=== PATIENT | female | born 1955 | race Caucasian/White ===

== ENCOUNTER 2016-10-03 12:22 | Inpatient (IN) | payer MEDICARE, OTHER ==
[~2016-10-03] VITALS: Ht 175.3 cm; Wt 82.0 kg
[~2016-10-03 12:22] MED LIST: ARIP15TA3 PO; CALCIUM CARBONATE PO; DIPH25 PO; DOCU250C91 PO; FERR-89 PO; FLUO-191 PO; INSNOV SQ; METF500T4 PO; ONDA4 PO; OXYC10IR PO; OXYC40TA57 PO; PANT40TA25 PO; PREG25 PO; SYMB8060 IH; ZOLP5 PO
[2016-10-03 12:46] LABS: GLUCOSE,POINT OF CARE 93 MG/DL (70-110)
[2016-10-03] MEDS ORDERED: VANCOMYCIN HCL 1 GM/D5% WATER 200 ML IV ONE (15:00)
[2016-10-03 15:51] LABS: APPEARANCE,URINE CLEAR (CLEAR); GLUCOSE, URINE (UA) NEGATIVE (NEGATIVE); KETONES,URINE TRACE mg/dL (NEGATIVE); LEUKOCYTE ESTERASE ,URINE NEGATIVE (NEGATIVE); OCCULT BLOOD,URINE NEGATIVE (NEGATIVE); PH,URINE 5.5 (5.0-8.0); PROTEIN,URINE TRACE (NEGATIVE)
[2016-10-03 15:52] LABS: ADD UA MICROSCOPIC NO
[2016-10-03 15:57] LABS: ANION GAP 8 mmol/L (8-16); CALCIUM, TOTAL 9.1 mg/dL (8.8-10.5); CARBON DIOXIDE 28 mmol/L (22-29); CHLORIDE 99 mmol/L (98-107); CREATININE 0.85 mg/dL (0.60-1.30); GLOMERULAR FILTR. RATE CALC > 60 mL/min (>60); POTASSIUM 3.9 mmol/L (3.5-5.1); SODIUM SERUM 135 mmol/L (136-145); UREA NITROGEN, BLOOD 15 mg/dL (7-18)
[2016-10-03 16:02] LABS: ALANINE AMINOTRANSFERASE 100 U/L (12-78); ALBUMIN 2.8 g/dL (3.4-5.0); ASPARTATE AMINOTRANSFERASE 129 U/L (15-37); BILIRUBIN,TOTAL 0.5 mg/dL (0.1-1.0); TOTAL PROTEIN, SERUM 7.8 g/dL (6.4-8.2)
[2016-10-03 16:04] LABS: BASOPHILS % (AUTO) 0.1 % (0.0-2.0); EOSINOPHILS % (AUTO) 0.4 % (1.0-6.0); HEMATOCRIT 40.7 % (36-46); HEMOGLOBIN 13.7 g/dL (12.0-16.0); LYMPHOCYTES # (AUTO) 1.6 K/uL (1.0-4.8); LYMPHOCYTES % (AUTO) 11.5 % (22.0-44.0); MEAN CORPUSCULAR HEMOGLOBIN 28.9 pg (26.0-34.0); MEAN CORPUSCULAR HGB CONC 33.7 G/dL (31.0-37.0); MEAN CORPUSCULAR VOLUME 86 fL (80-100); MONOCYTES # (AUTO) 0.6 K/uL (0.1-1.0); MONOCYTES % (AUTO) 4.5 % (2.0-9.0); NEUTROPHILS # (AUTO) 11.8 K/uL (1.8-7.7); NEUTROPHILS % (AUTO) 83.5 % (40.0-70.0); PLATELET COUNT (AUTO) 356 K/uL (150-450); RED BLOOD CELL COUNT(AUTO) 4.75 MIL/uL (4.00-5.20); RED CELL DISTRIBUTION WIDTH 15.5 % (11.5-14.5); WHITE BLOOD COUNT (AUTO) 14.1 K/uL (4.5-11.0)
[2016-10-03] MEDS ORDERED: HYDROmorphone 2 MG/ML SYRINGE IVP ONE (16:30)
[2016-10-03 17:09] LABS: ERYTHROCYTE SEDIMENTATION RATE 50 MM/HR (0-20)
[2016-10-03] MEDS ORDERED: OxyCODONE HCL/ACETAMINOPHEN 5-325 MG TABLET PO PRN (17:15)
[2016-10-03] MEDS ORDERED: ONDANSETRON HCL 4 MG/2 ML VIAL IVP PRN ×2 (17:15→20:15)
[2016-10-03] MEDS ORDERED: ACETAMINOPHEN 325 MG TABLET PO PRN ×2 (17:15→20:15)
[2016-10-03] MEDS ORDERED: 0.9% SODIUM CHLORIDE 10 ML SYRINGE IVP PRN (17:15)
[2016-10-03 17:54] VITALS: BP 119/70
[2016-10-03 19:28] VITALS: BP 115/72
[2016-10-03 19:35] LABS: GLUCOSE,POINT OF CARE 100 MG/DL (70-110)
[2016-10-03] MEDS ORDERED: MAGNESIUM HYDROXIDE SUSPENSION 30 ML UDCUP PO PRN (20:15)
[2016-10-03] MEDS ORDERED: IPRATROPIUM BROMIDE 0.5 MG/2.5 ML NEB SOLUTION NEB PRN (20:15)
[2016-10-03] MEDS ORDERED: ZOLPIDEM TARTRATE 5 MG TABLET PO PRN (20:15)
[2016-10-03] MEDS ORDERED: BISACODYL 10 MG RECTAL RECTAL SUPPOSITORY PR PRN (20:15)
[2016-10-03] MEDS ORDERED: ALBUTEROL SULFATE 2.5 MG/0.5 ML NEB SOLUTION NEB PRN (20:15)
[2016-10-03] MEDS ORDERED: SODIUM CHLORIDE 0.9% 500 ML IV ONE (21:33)
[2016-10-03] MEDS: DOCUSATE SODIUM 100 MG CAPSULE PO SCH (21:44)
[2016-10-03] MEDS: CEFTAROLINE 600 MG/D5W 250 ML IV SCH (21:44)
[2016-10-03] MEDS: CALCIUM CARBONATE 648 MG TABLET PO SCH (21:44)
[2016-10-03] MEDS: BUDESONIDE/FORMOTEROL FUMARATE 80-4.5 MCG/PUFF 6.9 GM INHALER IH SCH (21:44)
[2016-10-03] MEDS: PREGABALIN 25 MG CAPSULE PO SCH (21:44)
[2016-10-03] MEDS: NICOTINE 21 MG/24 HOUR PATCH TD SCH (21:45)
[2016-10-03] MEDS: HYDROCODONE/ACETAMINOPHEN 5-325 MG TABLET PO PRN (22:11)
[2016-10-03 23:22] VITALS: BP 100/48
[2016-10-04] MEDS: HEPARIN SODIUM,PORCINE 5,000 UNITS/ML VIAL SQ SCH ×4 (00:07→23:08)
[2016-10-04] MEDS: ZOLPIDEM TARTRATE 5 MG TABLET PO PRN ×2 (00:09→22:01)
[2016-10-04 04:45] VITALS: BP 100/66
[2016-10-04] MEDS: HYDROCODONE/ACETAMINOPHEN 5-325 MG TABLET PO PRN ×2 (04:55→22:01)
[2016-10-04 06:49] LABS: BASOPHILS # (AUTO) 0.02 K/uL (0.00-0.20); BASOPHILS % (AUTO) 0.2 % (0.0-2.0); EOSINOPHILS # (AUTO) 0.07 K/uL (0.00-0.70); EOSINOPHILS % (AUTO) 0.64 % (1.0-6.0); HEMATOCRIT 38.9 % (36-46); HEMOGLOBIN 13.1 g/dL (12.0-16.0); LYMPHOCYTES # (AUTO) 0.9 K/uL (1.0-4.8); LYMPHOCYTES % (AUTO) 8.9 % (22.0-44.0); MEAN CORPUSCULAR HGB CONC 33.8 G/dL (31.0-37.0); MEAN CORPUSCULAR VOLUME 86 fL (80-100); MONOCYTES # (AUTO) 0.6 K/uL (0.1-1.0); MONOCYTES % (AUTO) 5.5 % (2.0-9.0); NEUTROPHILS # (AUTO) 8.9 K/uL (1.8-7.7); NEUTROPHILS % (AUTO) 84.7 % (40.0-70.0); PLATELET COUNT (AUTO) 328 K/uL (150-450); RED BLOOD CELL COUNT(AUTO) 4.52 MIL/uL (4.00-5.20); RED CELL DISTRIBUTION WIDTH 14.6 % (11.5-14.5); WHITE BLOOD COUNT (AUTO) 10.6 K/uL (4.5-11.0)
[2016-10-04 07:03] LABS: ALANINE AMINOTRANSFERASE 95 U/L (12-78); ALBUMIN 2.5 g/dL (3.4-5.0); ANION GAP 2 mmol/L (8-16); ASPARTATE AMINOTRANSFERASE 135 U/L (15-37); BILIRUBIN,TOTAL 0.4 mg/dL (0.1-1.0); CALCIUM, TOTAL 8.7 mg/dL (8.8-10.5); CARBON DIOXIDE 32 mmol/L (22-29); CHLORIDE 101 mmol/L (98-107); CREATININE 0.91 mg/dL (0.60-1.30); GLOMERULAR FILTR. RATE CALC > 60 mL/min (>60); SODIUM SERUM 135 mmol/L (136-145); TOTAL PROTEIN, SERUM 7.3 g/dL (6.4-8.2); UREA NITROGEN, BLOOD 12 mg/dL (7-18)
[2016-10-04 07:15] VITALS: BP 114/80
[2016-10-04] MEDS ORDERED: DEXTROSE 50%-WATER 25 GM/50 ML SYRINGE IVP PRN (09:15)
[2016-10-04] MEDS: CEFTAROLINE 600 MG/D5W 250 ML IV SCH ×2 (09:28→20:21)
[2016-10-04] MEDS: MORPHINE SULFATE 4 MG/ML SYRINGE IVP PRN ×2 (09:28→15:44)
[2016-10-04] MEDS: PANTOPRAZOLE SODIUM 40 MG/VIAL IVP SCH (09:29)
[2016-10-04] MEDS: MetFORMIN HCL 500 MG TABLET PO SCH ×2 (09:29→18:16)
[2016-10-04] MEDS: FERROUS SULFATE 325 MG EC TABLET PO SCH ×2 (09:29→18:16)
[2016-10-04] MEDS: FLUoxetine HCL 20 MG CAPSULE PO SCH (09:30)
[2016-10-04] MEDS: BUDESONIDE/FORMOTEROL FUMARATE 80-4.5 MCG/PUFF 6.9 GM INHALER IH SCH ×2 (09:30→20:21)
[2016-10-04] MEDS: DOCUSATE SODIUM 100 MG CAPSULE PO SCH ×2 (09:30→20:20)
[2016-10-04] MEDS: CALCIUM CARBONATE 648 MG TABLET PO SCH ×2 (09:30→20:21)
[2016-10-04] MEDS: PREGABALIN 25 MG CAPSULE PO SCH ×2 (09:30→20:20)
[2016-10-04] MEDS: NICOTINE 21 MG/24 HOUR PATCH TD SCH (09:31)
[2016-10-04] MEDS: ARIPiprazole 15 MG TABLET PO SCH (09:31)
[2016-10-04 11:13] VITALS: BP 97/57
[2016-10-04 12:31] LABS: GLUCOSE,POINT OF CARE 115 MG/DL (70-110)
[2016-10-04] MEDS: INSULIN ASPART 100 UNITS/ML SQ PRN ×3 (13:46→17:10)
[2016-10-04 15:22] VITALS: BP_SYST 102; BP_SYST 155; BP_DIAS 57; BP_DIAS 64
[2016-10-04] MEDS: DiphenhydrAMINE HCL 25 MG CAPSULE PO PRN (18:16)
[2016-10-04 19:31] LABS: GLUCOSE,POINT OF CARE 107 MG/DL (70-110)
[2016-10-04 19:40] VITALS: BP 114/73
[2016-10-04 20:41] LABS: GLUCOSE,POINT OF CARE 106 MG/DL (70-110)
[2016-10-04 23:34] VITALS: BP 100/67
[2016-10-05] MEDS: MORPHINE SULFATE 4 MG/ML SYRINGE IVP PRN ×2 (02:36→23:00)
[2016-10-05 04:36] VITALS: BP 117/72
[2016-10-05 05:35] LABS: GLUCOSE,POINT OF CARE 92 MG/DL (70-110)
[2016-10-05 06:24] LABS: BASOPHILS # (AUTO) 0.03 K/uL (0.00-0.20); BASOPHILS % (AUTO) 0.3 % (0.0-2.0); EOSINOPHILS # (AUTO) 0.07 K/uL (0.00-0.70); EOSINOPHILS % (AUTO) 0.58 % (1.0-6.0); HEMATOCRIT 40.6 % (36-46); HEMOGLOBIN 13.7 g/dL (12.0-16.0); LYMPHOCYTES # (AUTO) 1.7 K/uL (1.0-4.8); LYMPHOCYTES % (AUTO) 14.4 % (22.0-44.0); MEAN CORPUSCULAR HEMOGLOBIN 29.5 pg (26.0-34.0); MEAN CORPUSCULAR HGB CONC 33.8 G/dL (31.0-37.0); MEAN CORPUSCULAR VOLUME 87 fL (80-100); MONOCYTES # (AUTO) 0.6 K/uL (0.1-1.0); MONOCYTES % (AUTO) 5.4 % (2.0-9.0); NEUTROPHILS # (AUTO) 9.1 K/uL (1.8-7.7); NEUTROPHILS % (AUTO) 79.3 % (40.0-70.0); PLATELET COUNT (AUTO) 313 K/uL (150-450); RED BLOOD CELL COUNT(AUTO) 4.65 MIL/uL (4.00-5.20); RED CELL DISTRIBUTION WIDTH 15.9 % (11.5-14.5); WHITE BLOOD COUNT (AUTO) 11.5 K/uL (4.5-11.0)
[2016-10-05 07:00] LABS: ALANINE AMINOTRANSFERASE 81 U/L (12-78); ALBUMIN 2.6 g/dL (3.4-5.0); ANION GAP 7 mmol/L (8-16); ASPARTATE AMINOTRANSFERASE 98 U/L (15-37); BILIRUBIN,TOTAL 0.4 mg/dL (0.1-1.0); CALCIUM, TOTAL 9.1 mg/dL (8.8-10.5); CARBON DIOXIDE 29 mmol/L (22-29); CHLORIDE 99 mmol/L (98-107); CREATININE 0.92 mg/dL (0.60-1.30); GLOMERULAR FILTR. RATE CALC > 60 mL/min (>60); POTASSIUM 4.2 mmol/L (3.5-5.1); SODIUM SERUM 135 mmol/L (136-145); TOTAL PROTEIN, SERUM 7.7 g/dL (6.4-8.2); UREA NITROGEN, BLOOD 12 mg/dL (7-18)
[2016-10-05 07:10] VITALS: BP 138/70
[2016-10-05] MEDS: PANTOPRAZOLE SODIUM 40 MG/VIAL IVP SCH (07:52)
[2016-10-05] MEDS: HEPARIN SODIUM,PORCINE 5,000 UNITS/ML VIAL SQ SCH ×3 (07:52→23:00)
[2016-10-05] MEDS: MetFORMIN HCL 500 MG TABLET PO SCH ×2 (07:52→17:34)
[2016-10-05] MEDS: FERROUS SULFATE 325 MG EC TABLET PO SCH ×2 (07:52→17:34)
[2016-10-05] MEDS: DOCUSATE SODIUM 100 MG CAPSULE PO SCH ×2 (07:53→20:00)
[2016-10-05] MEDS: NICOTINE 21 MG/24 HOUR PATCH TD SCH (07:53)
[2016-10-05] MEDS: CALCIUM CARBONATE 648 MG TABLET PO SCH ×2 (07:53→20:00)
[2016-10-05] MEDS: BUDESONIDE/FORMOTEROL FUMARATE 80-4.5 MCG/PUFF 6.9 GM INHALER IH SCH ×2 (07:53→20:01)
[2016-10-05] MEDS: PREGABALIN 25 MG CAPSULE PO SCH ×2 (07:53→20:00)
[2016-10-05] MEDS: ARIPiprazole 15 MG TABLET PO SCH (07:53)
[2016-10-05] MEDS: FLUoxetine HCL 20 MG CAPSULE PO SCH (07:54)
[2016-10-05] MEDS: CEFTAROLINE 600 MG/D5W 250 ML IV SCH ×3 (07:55→20:00)
[2016-10-05 11:01] VITALS: BP 123/57
[2016-10-05] MEDS: HYDROCODONE/ACETAMINOPHEN 5-325 MG TABLET PO PRN ×3 (11:09→20:01)
[2016-10-05 11:41] LABS: GLUCOSE,POINT OF CARE 116 MG/DL (70-110)
[2016-10-05 15:02] VITALS: BP 119/73
[2016-10-05] MEDS ORDERED: 0.9% SODIUM CHLORIDE 10 ML SYRINGE IVP PRN (16:15)
[2016-10-05 19:21] LABS: GLUCOSE,POINT OF CARE 115 MG/DL (70-110)
[2016-10-05 19:32] VITALS: BP 116/76
[2016-10-05] MEDS: DiphenhydrAMINE HCL 25 MG CAPSULE PO PRN (20:06)
[2016-10-05 20:11] LABS: GLUCOSE,POINT OF CARE 119 MG/DL (70-110)
[2016-10-05] MEDS: ZOLPIDEM TARTRATE 5 MG TABLET PO PRN (23:00)
[2016-10-05 23:31] VITALS: BP 114/77
[2016-10-06 04:33] VITALS: BP 118/76
[2016-10-06] MEDS: DiphenhydrAMINE HCL 25 MG CAPSULE PO PRN ×2 (04:33→15:16)
[2016-10-06] MEDS: HYDROCODONE/ACETAMINOPHEN 5-325 MG TABLET PO PRN ×4 (04:35→20:22)
[2016-10-06 06:31] LABS: GLUCOSE,POINT OF CARE 96 MG/DL (70-110)
[2016-10-06 06:38] LABS: BASOPHILS % (AUTO) 0.2 % (0.0-2.0); EOSINOPHILS % (AUTO) 0.3 % (1.0-6.0); HEMATOCRIT 41.1 % (36-46); HEMOGLOBIN 13.6 g/dL (12.0-16.0); LYMPHOCYTES # (AUTO) 1.1 K/uL (1.0-4.8); LYMPHOCYTES % (AUTO) 10.1 % (22.0-44.0); MEAN CORPUSCULAR HEMOGLOBIN 28.9 pg (26.0-34.0); MEAN CORPUSCULAR VOLUME 88 fL (80-100); MONOCYTES # (AUTO) 0.7 K/uL (0.1-1.0); MONOCYTES % (AUTO) 5.9 % (2.0-9.0); NEUTROPHILS # (AUTO) 9.3 K/uL (1.8-7.7); NEUTROPHILS % (AUTO) 83.5 % (40.0-70.0); PLATELET COUNT (AUTO) 314 K/uL (150-450); WHITE BLOOD COUNT (AUTO) 11.1 K/uL (4.5-11.0)
[2016-10-06 06:52] LABS: ALANINE AMINOTRANSFERASE 75 U/L (12-78); ALBUMIN 2.6 g/dL (3.4-5.0); ANION GAP 5 mmol/L (8-16); ASPARTATE AMINOTRANSFERASE 86 U/L (15-37); BILIRUBIN,TOTAL 0.3 mg/dL (0.1-1.0); CALCIUM, TOTAL 9.2 mg/dL (8.8-10.5); CARBON DIOXIDE 31 mmol/L (22-29); CHLORIDE 99 mmol/L (98-107); GLOMERULAR FILTR. RATE CALC > 60 mL/min (>60); POTASSIUM 4.2 mmol/L (3.5-5.1); SODIUM SERUM 135 mmol/L (136-145); TOTAL PROTEIN, SERUM 8.1 g/dL (6.4-8.2); UREA NITROGEN, BLOOD 10 mg/dL (7-18)
[2016-10-06 08:18] VITALS: BP 110/79
[2016-10-06] MEDS: DOCUSATE SODIUM 100 MG CAPSULE PO SCH ×2 (08:22→20:16)
[2016-10-06] MEDS: BUDESONIDE/FORMOTEROL FUMARATE 80-4.5 MCG/PUFF 6.9 GM INHALER IH SCH ×2 (08:23→20:17)
[2016-10-06] MEDS: ARIPiprazole 15 MG TABLET PO SCH (08:23)
[2016-10-06] MEDS: PANTOPRAZOLE SODIUM 40 MG/VIAL IVP SCH (08:23)
[2016-10-06] MEDS: MetFORMIN HCL 500 MG TABLET PO SCH ×2 (08:23→17:28)
[2016-10-06] MEDS: CALCIUM CARBONATE 648 MG TABLET PO SCH ×2 (08:23→20:16)
[2016-10-06] MEDS: FERROUS SULFATE 325 MG EC TABLET PO SCH ×2 (08:23→17:28)
[2016-10-06] MEDS: FLUoxetine HCL 20 MG CAPSULE PO SCH (08:24)
[2016-10-06] MEDS: PREGABALIN 25 MG CAPSULE PO SCH ×2 (08:24→20:17)
[2016-10-06] MEDS: NICOTINE 21 MG/24 HOUR PATCH TD SCH (08:24)
[2016-10-06] MEDS: HEPARIN SODIUM,PORCINE 5,000 UNITS/ML VIAL SQ SCH ×3 (08:25→23:58)
[2016-10-06] MEDS: CEFTAROLINE 600 MG/D5W 250 ML IV SCH ×2 (09:19→20:17)
[2016-10-06 11:29] VITALS: BP 116/78
[2016-10-06 12:31] LABS: GLUCOSE,POINT OF CARE 95 MG/DL (70-110)
[2016-10-06 15:15] VITALS: BP 109/84
[2016-10-06] MEDS: MORPHINE SULFATE 4 MG/ML SYRINGE IVP PRN ×2 (16:06→22:29)
[2016-10-06 18:16] LABS: GLUCOSE,POINT OF CARE 126 MG/DL (70-110)
[2016-10-06 19:35] VITALS: BP 112/54
[2016-10-06 21:22] LABS: GLUCOSE,POINT OF CARE 104 MG/DL (70-110)
[2016-10-06] MEDS: ZOLPIDEM TARTRATE 5 MG TABLET PO PRN (22:29)
[2016-10-06 23:49] VITALS: BP 106/59
[2016-10-07 03:58] VITALS: BP 112/73
[2016-10-07] MEDS: DiphenhydrAMINE HCL 25 MG CAPSULE PO PRN ×3 (05:17→23:21)
[2016-10-07 06:29] LABS: BASOPHILS % (AUTO) 0.4 % (0.0-2.0); EOSINOPHILS % (AUTO) 0.9 % (1.0-6.0); HEMATOCRIT 42.7 % (36-46); HEMOGLOBIN 13.9 g/dL (12.0-16.0); LYMPHOCYTES # (AUTO) 0.9 K/uL (1.0-4.8); LYMPHOCYTES % (AUTO) 10.4 % (22.0-44.0); MEAN CORPUSCULAR HEMOGLOBIN 28.7 pg (26.0-34.0); MEAN CORPUSCULAR HGB CONC 32.6 G/dL (31.0-37.0); MEAN CORPUSCULAR VOLUME 88 fL (80-100); MONOCYTES # (AUTO) 0.5 K/uL (0.1-1.0); MONOCYTES % (AUTO) 5.5 % (2.0-9.0); NEUTROPHILS # (AUTO) 7.6 K/uL (1.8-7.7); NEUTROPHILS % (AUTO) 82.8 % (40.0-70.0); PLATELET COUNT (AUTO) 307 K/uL (150-450); RED BLOOD CELL COUNT(AUTO) 4.85 MIL/uL (4.00-5.20); RED CELL DISTRIBUTION WIDTH 15.4 % (11.5-14.5); WHITE BLOOD COUNT (AUTO) 9.2 K/uL (4.5-11.0)
[2016-10-07 07:05] LABS: ALANINE AMINOTRANSFERASE 75 U/L (12-78); ALBUMIN 2.6 g/dL (3.4-5.0); ANION GAP 6 mmol/L (8-16); ASPARTATE AMINOTRANSFERASE 97 U/L (15-37); BILIRUBIN,TOTAL 0.3 mg/dL (0.1-1.0); CARBON DIOXIDE 29 mmol/L (22-29); CHLORIDE 99 mmol/L (98-107); CREATININE 0.83 mg/dL (0.60-1.30); GLOMERULAR FILTR. RATE CALC > 60 mL/min (>60); POTASSIUM 4.3 mmol/L (3.5-5.1); SODIUM SERUM 134 mmol/L (136-145); TOTAL PROTEIN, SERUM 8.3 g/dL (6.4-8.2); UREA NITROGEN, BLOOD 14 mg/dL (7-18)
[2016-10-07 07:17] VITALS: BP 130/77
[2016-10-07 07:26] LABS: GLUCOSE,POINT OF CARE 94 MG/DL (70-110)
[2016-10-07] MEDS: FLUoxetine HCL 20 MG CAPSULE PO SCH (08:46)
[2016-10-07] MEDS: CALCIUM CARBONATE 648 MG TABLET PO SCH ×2 (08:46→20:00)
[2016-10-07] MEDS: PREGABALIN 25 MG CAPSULE PO SCH ×2 (08:46→19:59)
[2016-10-07] MEDS: MORPHINE SULFATE 4 MG/ML SYRINGE IVP PRN ×2 (08:46→17:44)
[2016-10-07] MEDS: DOCUSATE SODIUM 100 MG CAPSULE PO SCH ×2 (08:47→19:59)
[2016-10-07] MEDS: FERROUS SULFATE 325 MG EC TABLET PO SCH ×2 (08:47→17:42)
[2016-10-07] MEDS: MetFORMIN HCL 500 MG TABLET PO SCH ×2 (08:47→17:42)
[2016-10-07] MEDS: HEPARIN SODIUM,PORCINE 5,000 UNITS/ML VIAL SQ SCH ×3 (08:47→23:21)
[2016-10-07] MEDS: NICOTINE 21 MG/24 HOUR PATCH TD SCH (08:48)
[2016-10-07] MEDS: BUDESONIDE/FORMOTEROL FUMARATE 80-4.5 MCG/PUFF 6.9 GM INHALER IH SCH ×2 (08:48→20:00)
[2016-10-07] MEDS: PANTOPRAZOLE SODIUM 40 MG/VIAL IVP SCH (08:48)
[2016-10-07] MEDS: ARIPiprazole 15 MG TABLET PO SCH (08:48)
[2016-10-07] MEDS: CEFTAROLINE 600 MG/D5W 250 ML IV SCH ×2 (08:49→20:00)
[2016-10-07] MEDS ORDERED: SODIUM CHLORIDE 0.9% 500 ML IV ONE (09:06)
[2016-10-07 11:57] VITALS: BP 111/83
[2016-10-07 12:02] LABS: GLUCOSE,POINT OF CARE 92 MG/DL (70-110)
[2016-10-07] MEDS: INSULIN ASPART 100 UNITS/ML SQ PRN ×2 (13:13→17:48)
[2016-10-07] MEDS: HYDROCODONE/ACETAMINOPHEN 5-325 MG TABLET PO PRN (14:04)
[2016-10-07 15:39] VITALS: BP 129/83
[2016-10-07 18:36] LABS: GLUCOSE,POINT OF CARE 93 MG/DL (70-110)
[2016-10-07 19:27] VITALS: BP 122/70
[2016-10-07 20:46] LABS: GLUCOSE,POINT OF CARE 117 MG/DL (70-110)
[2016-10-07 23:24] VITALS: BP 121/80
[2016-10-08] MEDS: ZOLPIDEM TARTRATE 5 MG TABLET PO PRN (00:01)
[2016-10-08] MEDS: HYDROCODONE/ACETAMINOPHEN 5-325 MG TABLET PO PRN ×2 (00:02→08:37)
[2016-10-08 04:30] VITALS: BP 136/98
[2016-10-08 06:01] LABS: GLUCOSE,POINT OF CARE 108 MG/DL (70-110)
[2016-10-08 06:04] LABS: BASOPHILS % (AUTO) 0.5 % (0.0-2.0); EOSINOPHILS % (AUTO) 1.4 % (1.0-6.0); HEMATOCRIT 43.2 % (36-46); LYMPHOCYTES # (AUTO) 1.2 K/uL (1.0-4.8); LYMPHOCYTES % (AUTO) 14.4 % (22.0-44.0); MEAN CORPUSCULAR HGB CONC 32.4 G/dL (31.0-37.0); MEAN CORPUSCULAR VOLUME 86 fL (80-100); MONOCYTES # (AUTO) 0.6 K/uL (0.1-1.0); MONOCYTES % (AUTO) 6.7 % (2.0-9.0); NEUTROPHILS # (AUTO) 6.4 K/uL (1.8-7.7); PLATELET COUNT (AUTO) 313 K/uL (150-450); RED BLOOD CELL COUNT(AUTO) 5.01 MIL/uL (4.00-5.20); RED CELL DISTRIBUTION WIDTH 15.2 % (11.5-14.5); WHITE BLOOD COUNT (AUTO) 8.3 K/uL (4.5-11.0)
[2016-10-08 06:35] LABS: ALANINE AMINOTRANSFERASE 98 U/L (12-78); ALBUMIN 2.7 g/dL (3.4-5.0); ANION GAP 8 mmol/L (8-16); ASPARTATE AMINOTRANSFERASE 155 U/L (15-37); BILIRUBIN,TOTAL 0.4 mg/dL (0.1-1.0); CALCIUM, TOTAL 9.4 mg/dL (8.8-10.5); CARBON DIOXIDE 28 mmol/L (22-29); CHLORIDE 98 mmol/L (98-107); CREATININE 0.94 mg/dL (0.60-1.30); GLOMERULAR FILTR. RATE CALC > 60 mL/min (>60); POTASSIUM 4.3 mmol/L (3.5-5.1); SODIUM SERUM 134 mmol/L (136-145); TOTAL PROTEIN, SERUM 8.4 g/dL (6.4-8.2); UREA NITROGEN, BLOOD 19 mg/dL (7-18)
[2016-10-08 07:35] VITALS: BP 126/88
[2016-10-08] MEDS: PREGABALIN 25 MG CAPSULE PO SCH (08:34)
[2016-10-08] MEDS: ARIPiprazole 15 MG TABLET PO SCH (08:34)
[2016-10-08] MEDS: MetFORMIN HCL 500 MG TABLET PO SCH (08:35)
[2016-10-08] MEDS: CEFTAROLINE 600 MG/D5W 250 ML IV SCH (08:35)
[2016-10-08] MEDS: FLUoxetine HCL 20 MG CAPSULE PO SCH (08:35)
[2016-10-08] MEDS: BUDESONIDE/FORMOTEROL FUMARATE 80-4.5 MCG/PUFF 6.9 GM INHALER IH SCH (08:35)
[2016-10-08] MEDS: DOCUSATE SODIUM 100 MG CAPSULE PO SCH (08:35)
[2016-10-08] MEDS: CALCIUM CARBONATE 648 MG TABLET PO SCH (08:36)
[2016-10-08] MEDS: NICOTINE 21 MG/24 HOUR PATCH TD SCH (08:36)
[2016-10-08] MEDS: PANTOPRAZOLE SODIUM 40 MG/VIAL IVP SCH (08:36)
[2016-10-08] MEDS: HEPARIN SODIUM,PORCINE 5,000 UNITS/ML VIAL SQ SCH (08:36)
[2016-10-08] MEDS: FERROUS SULFATE 325 MG EC TABLET PO SCH (08:36)
[2016-10-08] MEDS: DiphenhydrAMINE HCL 25 MG CAPSULE PO PRN (11:03)
[2016-10-08 11:27] VITALS: BP 135/93
[2016-10-08 11:32] LABS: GLUCOSE,POINT OF CARE 88 MG/DL (70-110)
[2016-10-08] MEDS ORDERED: LORazepam 2 MG/ML VIAL IVP ONE (12:30)
[2016-10-23] MEDS ORDERED: BACTDSB PO (15:18)
[2016-10-23] MEDS ORDERED: OXYC20TA76 PO (15:26)
[2016-10-23] MEDS ORDERED: BUDE10.2 IH (15:26)
== END 2016-10-08 14:03 | disposition home or self-care (01) | DRG 872 ==
LOC: EMS 12:25 → 6N 17:10
PROVIDERS: ADMIT Hospitalist; ATTEND Hospitalist
DX: A41.9 Sepsis, unspecified organism (principal); L03.115 Cellulitis of right lower limb; E44.0 Moderate protein-calorie malnutrition; L02.415 Cutaneous abscess of right lower limb; E11.65 Type 2 diabetes mellitus with hyperglycemia; F31.9 Bipolar disorder, unspecified; F20.9 Schizophrenia, unspecified; G47.00 Insomnia, unspecified; M19.90 Unspecified osteoarthritis, unspecified site; B19.20 Unspecified viral hepatitis C without hepatic coma; E78.5 Hyperlipidemia, unspecified; I10 Essential (primary) hypertension; G89.4 Chronic pain syndrome; J44.9 Chronic obstructive pulmonary disease, unspecified; Z96.641 Presence of right artificial hip joint; Z87.891 Personal history of nicotine dependence; Z98.890 Other specified postprocedural states; Z79.4 Long term (current) use of insulin; Z79.899 Other long term (current) drug therapy; Z22.322 Carrier or suspected carrier of Methicillin resistant Staphylococcus aureus; Z88.8 Allergy status to other drugs, medicaments and biological substances; Z88.2 Allergy status to sulfonamides; Z88.0 Allergy status to penicillin
CPT/HCPCS: 76881; 82962; 85651; 86140; 87040; 87045; 87081; 96365; 96366; 96375; 99285; C9113; J0712; J1170; J1644; J2060; J2270; J3370; J7040

== ENCOUNTER → 2016-10-23 | Outpatient (CLI) | payer MEDICARE, OTHER, SELFPAY ==
[~2016-10-23] VITALS: Ht 175.3 cm; Wt 83.5 kg
[~2016-10-23] MED LIST changes: +BACTDSB PO; +BUDE10.2 IH; +LISI-661 PO; +LISI-662 PO; +OMEP20 PO; +OS500 PO; -OXYC10IR PO; +OXYC20TA76 PO
[2016-10-23 15:14] VITALS: BP 100/60
== END | disposition home or self-care (01) ==
LOC: SRCNTR 15:06
PROVIDERS: ATTEND Internal Medicine Infectious Disease
DX: E11.9 Type 2 diabetes mellitus without complications (principal); T84.51XA Infection and inflammatory reaction due to internal right hip prosthesis, initial encounter; Z88.0 Allergy status to penicillin; Z98.890 Other specified postprocedural states
CPT/HCPCS: G0463

== ENCOUNTER 2016-10-30 20:02 | Emergency (ER) | payer MEDICARE, OTHER ==
[~2016-10-30] VITALS: Ht 175.3 cm; Wt 79.0 kg
[~2016-10-30 20:02] MED LIST changes: -LISI-661 PO; -LISI-662 PO; -OMEP20 PO; -ONDA4 PO; -OS500 PO; -OXYC40TA57 PO; -PREG25 PO; -SYMB8060 IH
[2016-10-30] MEDS ORDERED: OS500 PO (20:14)
[2016-10-30] MEDS ORDERED: LISI-661 PO (20:14)
[2016-10-30] MEDS ORDERED: OMEP20 PO (20:14)
[2016-10-30 20:32] LABS: GLUCOSE,POINT OF CARE 139 MG/DL (70-110)
[2016-10-30] MEDS ORDERED: HydrOXYzine PAMOATE 50 MG CAPSULE PO ONE (21:30)
[2016-10-30 21:56] VITALS: BP 124/74
== END 2016-10-30 23:07 | disposition home or self-care (01) ==
LOC: EMS 20:09
DX: L29.9 Pruritus, unspecified (principal); E11.9 Type 2 diabetes mellitus without complications; I10 Essential (primary) hypertension; F17.210 Nicotine dependence, cigarettes, uncomplicated; Z88.0 Allergy status to penicillin; Z88.2 Allergy status to sulfonamides; Z88.8 Allergy status to other drugs, medicaments and biological substances
CPT/HCPCS: 82962; 99283

== ENCOUNTER → 2016-11-01 | Outpatient (CLI) | payer MEDICARE, OTHER ==
[~2016-11-01] MED LIST changes: +LISI-661 PO; +LISI-662 PO; +OMEP20 PO; +OS500 PO
[2016-11-01 12:23] LABS: BASOPHILS % (AUTO) 0.3 % (0.0-2.0); EOSINOPHILS % (AUTO) 0.5 % (1.0-6.0); HEMATOCRIT 43.6 % (36-46); HEMOGLOBIN 14.2 g/dL (12.0-16.0); LYMPHOCYTES # (AUTO) 1.3 K/uL (1.0-4.8); MEAN CORPUSCULAR HEMOGLOBIN 28.1 pg (26.0-34.0); MEAN CORPUSCULAR HGB CONC 32.5 G/dL (31.0-37.0); MEAN CORPUSCULAR VOLUME 87 fL (80-100); MONOCYTES # (AUTO) 0.7 K/uL (0.1-1.0); MONOCYTES % (AUTO) 6.6 % (2.0-9.0); NEUTROPHILS # (AUTO) 7.9 K/uL (1.8-7.7); NEUTROPHILS % (AUTO) 79.6 % (40.0-70.0); PLATELET COUNT (AUTO) 249 K/uL (150-450); RED BLOOD CELL COUNT(AUTO) 5.03 MIL/uL (4.00-5.20); RED CELL DISTRIBUTION WIDTH 15.3 % (11.5-14.5); WHITE BLOOD COUNT (AUTO) 9.9 K/uL (4.5-11.0)
[2016-11-01 12:33] LABS: PROTHROMBIN TIME 10.8 SEC (9.4-11.6)
[2016-11-01 12:50] LABS: ALANINE AMINOTRANSFERASE 176 U/L (12-78); ALBUMIN 3.6 g/dL (3.4-5.0); ANION GAP 9 mmol/L (8-16); ASPARTATE AMINOTRANSFERASE 165 U/L (15-37); BILIRUBIN,TOTAL 0.4 mg/dL (0.1-1.0); CARBON DIOXIDE 26 mmol/L (22-29); CHLORIDE 100 mmol/L (98-107); CREATININE 0.93 mg/dL (0.60-1.30); GLOMERULAR FILTR. RATE CALC > 60 mL/min (>60); POTASSIUM 4.6 mmol/L (3.5-5.1); SODIUM SERUM 135 mmol/L (136-145); TOTAL PROTEIN, SERUM 8.5 g/dL (6.4-8.2); UREA NITROGEN, BLOOD 17 mg/dL (7-18)
[2016-11-01 13:35] LABS: ERYTHROCYTE SEDIMENTATION RATE 37 MM/HR (0-20)
== END | disposition home or self-care (01) ==
LOC: LABPV 10:30
PROVIDERS: ATTEND Internal Medicine Infectious Disease
DX: B19.20 Unspecified viral hepatitis C without hepatic coma (principal)
CPT/HCPCS: 85651; 86140

== ENCOUNTER → 2016-12-02 | Outpatient (CLI) | payer MEDICARE, OTHER ==
[~2016-12-02] MED LIST changes: -CALCIUM CARBONATE PO
== END | disposition home or self-care (01) ==
LOC: RADPV 13:04
PROVIDERS: ATTEND Internal Medicine Cardiovascular Disease
DX: I10 Essential (primary) hypertension (principal); E11.9 Type 2 diabetes mellitus without complications
CPT/HCPCS: 93005

== ENCOUNTER 2016-12-15 12:10 | Inpatient (IN) | payer MEDICARE, OTHER ==
[~2016-12-15] VITALS: Ht 167.6 cm; Wt 80.9 kg
[~2016-12-15 12:10] MED LIST changes: -LISI-662 PO
[2016-12-15] MEDS ORDERED: METF500T4 PO (12:21)
[2016-12-15 13:57] LABS: BASOPHILS % (AUTO) 0.4 % (0.0-2.0); EOSINOPHILS % (AUTO) 0.6 % (1.0-6.0); HEMATOCRIT 44.6 % (36-46); HEMOGLOBIN 14.2 g/dL (12.0-16.0); LYMPHOCYTES # (AUTO) 1.6 K/uL (1.0-4.8); LYMPHOCYTES % (AUTO) 15.1 % (22.0-44.0); MEAN CORPUSCULAR HEMOGLOBIN 27.4 pg (26.0-34.0); MEAN CORPUSCULAR HGB CONC 31.8 G/dL (31.0-37.0); MEAN CORPUSCULAR VOLUME 86 fL (80-100); MONOCYTES # (AUTO) 0.6 K/uL (0.1-1.0); MONOCYTES % (AUTO) 5.6 % (2.0-9.0); NEUTROPHILS # (AUTO) 8.5 K/uL (1.8-7.7); NEUTROPHILS % (AUTO) 78.3 % (40.0-70.0); PLATELET COUNT (AUTO) 214 K/uL (150-450); RED BLOOD CELL COUNT(AUTO) 5.17 MIL/uL (4.00-5.20); RED CELL DISTRIBUTION WIDTH 14.7 % (11.5-14.5); WHITE BLOOD COUNT (AUTO) 10.8 K/uL (4.5-11.0)
[2016-12-15 14:07] LABS: ANION GAP 11 mmol/L (8-16); CALCIUM, TOTAL 9.2 mg/dL (8.8-10.5); CARBON DIOXIDE 25 mmol/L (22-29); CHLORIDE 99 mmol/L (98-107); CREATININE 0.87 mg/dL (0.60-1.30); GLOMERULAR FILTR. RATE CALC > 60 mL/min (>60); POTASSIUM 4.1 mmol/L (3.5-5.1); SODIUM SERUM 135 mmol/L (136-145); UREA NITROGEN, BLOOD 16 mg/dL (7-18)
[2016-12-15 14:13] LABS: ALANINE AMINOTRANSFERASE 123 U/L (12-78); ALBUMIN 3.2 g/dL (3.4-5.0); ASPARTATE AMINOTRANSFERASE 132 U/L (15-37); BILIRUBIN,TOTAL 0.3 mg/dL (0.1-1.0); TOTAL PROTEIN, SERUM 8.1 g/dL (6.4-8.2)
[2016-12-15 14:24] LABS: PROTHROMBIN TIME 10.8 SEC (9.4-11.6)
[2016-12-15] MEDS ORDERED: ACETAMINOPHEN 325 MG TABLET PO PRN (15:30)
[2016-12-15] MEDS ORDERED: 0.9% SODIUM CHLORIDE 10 ML SYRINGE IVP PRN (15:30)
[2016-12-15] MEDS ORDERED: ONDANSETRON HCL 4 MG/2 ML VIAL IVP PRN (15:30)
[2016-12-15] MEDS ORDERED: SODIUM CHLORIDE 0.9% 1,000 ML IV ONE (15:30)
[2016-12-15 15:39] LABS: APPEARANCE,URINE CLEAR (CLEAR); GLUCOSE, URINE (UA) NEGATIVE (NEGATIVE); KETONES,URINE NEGATIVE (NEGATIVE); LEUKOCYTE ESTERASE ,URINE NEGATIVE (NEGATIVE); OCCULT BLOOD,URINE NEGATIVE (NEGATIVE); PH,URINE 6.5 (5.0-8.0); PROTEIN,URINE NEGATIVE (NEGATIVE)
[2016-12-15 15:46] LABS: GLUCOSE COMMENT 1 Doctor Notified; GLUCOSE,POINT OF CARE 85 MG/DL (70-110)
[2016-12-15 15:47] LABS: ADD UA MICROSCOPIC NO
[2016-12-15] MEDS ORDERED: HYDROmorphone 2 MG/ML SYRINGE IVP ONE (17:30)
[2016-12-15] MEDS ORDERED: ONDANSETRON HCL 4 MG/2 ML VIAL IVP ONE (17:30)
[2016-12-15 18:42] LABS: GLUCOSE COMMENT 1 Doctor Notified; GLUCOSE,POINT OF CARE 85 MG/DL (70-110)
[2016-12-15 21:08] VITALS: BP 116/72
[2016-12-15] MEDS ORDERED: DiphenhydrAMINE HCL 25 MG CAPSULE PO PRN (23:15)
[2016-12-15] MEDS ORDERED: ZOLPIDEM TARTRATE 5 MG TABLET PO PRN (23:15)
[2016-12-15] MEDS: OxyCODONE HCL 20 MG ER TABLET PO SCH (23:32)
[2016-12-15 23:52] VITALS: BP 105/72
[2016-12-16] VITALS (14 sets, daily range): BP systolic 86–123; BP diastolic 53–77
[2016-12-16] MEDS ORDERED: GLYCOPYRROLATE 0.2 MG/ML VIAL IM ONE (00:55)
[2016-12-16] MEDS ORDERED: PHENYLEPHRINE HCL 10 MG/ML VIAL IVP ONE (00:55)
[2016-12-16] MEDS ORDERED: FentaNYL CITRATE-PF 100 MCG/2 ML VIAL IVP ONE (00:55)
[2016-12-16] MEDS ORDERED: VECURONIUM BROMIDE 10 MG/VIAL IVP ONE (00:55)
[2016-12-16] MEDS ORDERED: NEOSTIGMINE METHYLSULFATE 1 MG/ML 10 ML VIAL IVP ONE (00:55)
[2016-12-16] MEDS ORDERED: HYDROmorphone 2 MG/ML SYRINGE IVP ONE (00:55)
[2016-12-16] MEDS ORDERED: PROPOFOL 1% 20 ML VIAL IVP ONE (00:55)
[2016-12-16] MEDS ORDERED: ROCURONIUM BROMIDE 10 MG/ML 5 ML VIAL IVP ONE (00:55)
[2016-12-16] MEDS ORDERED: ONDANSETRON HCL 4 MG/2 ML VIAL IVP ONE (00:55)
[2016-12-16] MEDS ORDERED: MIDAZOLAM HCL 2 MG/2 ML VIAL IVP ONE (00:55)
[2016-12-16] MEDS: MetFORMIN HCL 500 MG TABLET PO SCH ×2 (08:00→18:00)
[2016-12-16] MEDS: FERROUS SULFATE 325 MG EC TABLET PO SCH (08:00)
[2016-12-16] MEDS: OxyCODONE HCL 20 MG ER TABLET PO SCH ×2 (08:09→21:00)
[2016-12-16] MEDS ORDERED: OxyCODONE HCL 20 MG ER TABLET PO SCH (09:00)
[2016-12-16] MEDS ORDERED: SULFAMETHOX/TRIMETH DS 800-160 MG/TABLET PO SCH (09:00)
[2016-12-16] MEDS: CALCIUM OYSTER SHELL 500 MG TABLET PO SCH ×4 (09:00→21:00)
[2016-12-16] MEDS: ARIPiprazole 15 MG TABLET PO SCH (09:00)
[2016-12-16] MEDS: LISINOPRIL 20 MG TABLET PO SCH (09:00)
[2016-12-16] MEDS ORDERED: PANTOPRAZOLE SODIUM 40 MG DR TABLET PO SCH (09:00)
[2016-12-16] MEDS: OMEPRAZOLE 20 MG CAPSULE PO SCH (09:00)
[2016-12-16] MEDS: BUDESONIDE/FORMOTEROL FUMARATE 160-4.5 MCG/PUFF 6.9 GM INHALER IH SCH ×2 (09:00→21:00)
[2016-12-16] MEDS: FLUoxetine HCL 20 MG CAPSULE PO SCH (09:00)
[2016-12-16] MEDS: DOCUSATE SODIUM 250 MG CAPSULE PO SCH (09:00)
[2016-12-16] MEDS ORDERED: RINGERS SOLUTION,LACTATED 1,000 ML IV ONE ×4 (11:28→16:31)
[2016-12-16] MEDS ORDERED: LISI-662 PO (12:09)
[2016-12-16 12:12] LABS: GLUCOSE,POINT OF CARE 79 MG/DL (70-110)
[2016-12-16] MEDS ORDERED: TRANEXAMIC ACID 1,000 MG in DEXTROSE 5%-WATER 50 ML IV ONE (12:15)
[2016-12-16] MEDS ORDERED: VANCOMYCIN HCL 1 GM/D5% WATER 200 ML IV ONE (12:15)
[2016-12-16] MEDS ORDERED: SODIUM CL IRRIG SOLN BAG 3,000 ML IRRIG ONE (12:41)
[2016-12-16] MEDS: TOBRAMYCIN SULFATE POWDER 1.2 GM/VIAL TP ONE ×2 (13:33→14:45)
[2016-12-16] MEDS: VANCOMYCIN HCL 1 GM/VIAL TP ONE ×2 (13:34→14:45)
[2016-12-16] MEDS ORDERED: FentaNYL CITRATE-PF 100 MCG/2 ML VIAL IVP PRN (14:00)
[2016-12-16] MEDS ORDERED: HYDROmorphone 2 MG/ML SYRINGE IVP PRN (14:00)
[2016-12-16] MEDS ORDERED: HEPARIN SODIUM 1000 UNITS/NS 500 ML ONE (14:18)
[2016-12-16 15:41] LABS: ABG A-A DIFF O2 388.8 mmHg (10-20.0); ABG BASE EXCESS 1.9 mmol/L (-2.0-3.0); ABG HCO3 25.8 mmol/L (22.0-26.0); ABG OXYHEMOGLOBIN 98.1 % (94.0-100.0); ABG PCO2 56 mmHg (35-45); ABG PH 7.319 (7.35-7.450); TEMPERATURE, FAHRENHEIT, BG 98.4 FAHREN (96.0-98.6)
[2016-12-16] MEDS ORDERED: SODIUM CHLORIDE 0.9% 50 ML ONE (15:41)
[2016-12-16 15:47] LABS: HEMATOCRIT 22.7 % (36-46); HEMOGLOBIN 7.5 g/dL (12.0-16.0); MEAN CORPUSCULAR HEMOGLOBIN 28.2 pg (26.0-34.0); MEAN CORPUSCULAR HGB CONC 32.9 G/dL (31.0-37.0); MEAN CORPUSCULAR VOLUME 86 fL (80-100); PLATELET COUNT (AUTO) 177 K/uL (150-450); RED BLOOD CELL COUNT(AUTO) 2.65 MIL/uL (4.00-5.20); RED CELL DISTRIBUTION WIDTH 14.8 % (11.5-14.5); WHITE BLOOD COUNT (AUTO) 19.3 K/uL (4.5-11.0)
[2016-12-16 16:01] LABS: INR 1.2 (0.9-1.1); PROTHROMBIN TIME 13.1 SEC (9.4-11.6)
[2016-12-16 16:06] LABS: ANION GAP 3 mmol/L (8-16); CALCIUM, TOTAL 8.2 mg/dL (8.8-10.5); CARBON DIOXIDE 29 mmol/L (22-29); CHLORIDE 106 mmol/L (98-107); CREATININE 0.76 mg/dL (0.60-1.30); GLOMERULAR FILTR. RATE CALC > 60 mL/min (>60); SODIUM SERUM 138 mmol/L (136-145); UREA NITROGEN, BLOOD 14 mg/dL (7-18)
[2016-12-16 16:21] LABS: ALANINE AMINOTRANSFERASE 88 U/L (12-78); ASPARTATE AMINOTRANSFERASE 109 U/L (15-37); BILIRUBIN,TOTAL 0.5 mg/dL (0.1-1.0); TOTAL PROTEIN, SERUM 4.3 g/dL (6.4-8.2)
[2016-12-16] MEDS ORDERED: SODIUM CHLORIDE 0.9% 1,000 ML IV ONE ×2 (16:31→19:55)
[2016-12-16 16:41] LABS: BAND NEUTROPHILS % (MANUAL) 25 % (1-5); LYMPHOCYTES % (MANUAL) 7 % (22-44); TOTAL CELLS COUNTED 100
[2016-12-16 18:28] LABS: HEMATOCRIT 27.4 % (36-46); HEMOGLOBIN 9.1 g/dL (12.0-16.0); MEAN CORPUSCULAR HEMOGLOBIN 28.3 pg (26.0-34.0); MEAN CORPUSCULAR VOLUME 86 fL (80-100); PLATELET COUNT (AUTO) 150 K/uL (150-450); RED CELL DISTRIBUTION WIDTH 14.2 % (11.5-14.5); WHITE BLOOD COUNT (AUTO) 17.9 K/uL (4.5-11.0)
[2016-12-16 18:43] LABS: ABG A-A DIFF O2 208.7 mmHg (10-20.0); ABG BASE EXCESS 2.4 mmol/L (-2.0-3.0); ABG HCO3 26.5 mmol/L (22.0-26.0); ABG OXYHEMOGLOBIN 96.4 % (94.0-100.0); ABG PCO2 41 mmHg (35-45); ABG PH 7.431 (7.35-7.450); TEMPERATURE, FAHRENHEIT, BG 98.6 FAHREN (96.0-98.6)
[2016-12-16 18:44] LABS: ALLEN TEST, BLOOD GAS Positive
[2016-12-16] MEDS ORDERED: PHENYLEPHRINE 200 MG/D5%-WATER 250 ML IV PRN (19:00)
[2016-12-16 19:01] LABS: INR 1.2 (0.9-1.1); PROTHROMBIN TIME 12.8 SEC (9.4-11.6)
[2016-12-16 19:04] LABS: ANION GAP 4 mmol/L (8-16); CALCIUM, TOTAL 7.8 mg/dL (8.8-10.5); CARBON DIOXIDE 28 mmol/L (22-29); CHLORIDE 105 mmol/L (98-107); CREATININE 0.85 mg/dL (0.60-1.30); GLOMERULAR FILTR. RATE CALC > 60 mL/min (>60); POTASSIUM 4.2 mmol/L (3.5-5.1); SODIUM SERUM 137 mmol/L (136-145); UREA NITROGEN, BLOOD 14 mg/dL (7-18)
[2016-12-16 19:10] LABS: ALANINE AMINOTRANSFERASE 89 U/L (12-78); ASPARTATE AMINOTRANSFERASE 115 U/L (15-37); BILIRUBIN,TOTAL 1.2 mg/dL (0.1-1.0); TOTAL PROTEIN, SERUM 4.3 g/dL (6.4-8.2)
[2016-12-16 19:27] LABS: BAND NEUTROPHILS % (MANUAL) 32 % (1-5); LYMPHOCYTES % (MANUAL) 3 % (22-44); TOTAL CELLS COUNTED 100
[2016-12-16 20:17] LABS: GLUCOSE,POINT OF CARE 75 MG/DL (70-110)
[2016-12-16] MEDS ORDERED: 0.9% SODIUM CHLORIDE 10 ML SYRINGE IVP PRN (20:45)
[2016-12-16] MEDS: VANCOMYCIN HCL 1.25 GM in DEXTROSE 5%-WATER 250 ML IV SCH (21:57)
[2016-12-16] MEDS: OXYGEN THERAPY IH SCH (21:57)
[2016-12-16] MEDS ORDERED: SODIUM CHLORIDE 0.9% 250 ML IV ONE (22:41)
[2016-12-17] VITALS (7 sets, daily range): BP systolic 92–118; BP diastolic 49–78
[2016-12-17 03:11] LABS: HEMATOCRIT 33.2 % (36-46); HEMOGLOBIN 11.2 g/dL (12.0-16.0); MEAN CORPUSCULAR HEMOGLOBIN 28.5 pg (26.0-34.0); MEAN CORPUSCULAR HGB CONC 33.8 G/dL (31.0-37.0); MEAN CORPUSCULAR VOLUME 84 fL (80-100); PLATELET COUNT (AUTO) 113 K/uL (150-450); RED BLOOD CELL COUNT(AUTO) 3.93 MIL/uL (4.00-5.20); RED CELL DISTRIBUTION WIDTH 15.6 % (11.5-14.5); WHITE BLOOD COUNT (AUTO) 12.7 K/uL (4.5-11.0)
[2016-12-17 03:16] LABS: INR 1.2 (0.9-1.1); PROTHROMBIN TIME 12.2 SEC (9.4-11.6)
[2016-12-17 03:17] LABS: ANION GAP 5 mmol/L (8-16); CALCIUM, TOTAL 7.9 mg/dL (8.8-10.5); CARBON DIOXIDE 29 mmol/L (22-29); CHLORIDE 104 mmol/L (98-107); CREATININE 0.82 mg/dL (0.60-1.30); GLOMERULAR FILTR. RATE CALC > 60 mL/min (>60); POTASSIUM 3.8 mmol/L (3.5-5.1); SODIUM SERUM 138 mmol/L (136-145); UREA NITROGEN, BLOOD 15 mg/dL (7-18)
[2016-12-17 04:29] LABS: BAND NEUTROPHILS % (MANUAL) 4 % (1-5); EOSINOPHILS % (MANUAL) 1 % (1-6); LYMPHOCYTES % (MANUAL) 13 % (22-44); TOTAL CELLS COUNTED 100
[2016-12-17] MEDS ORDERED: MORPHINE SULFATE 4 MG/ML SYRINGE IVP PRN (05:30)
[2016-12-17] MEDS ORDERED: MORPHINE SULFATE 2 MG/ML SYRINGE IVP PRN (05:30)
[2016-12-17 06:00] LABS: BASOPHILS % (AUTO) 0.1 % (0.0-2.0); EOSINOPHILS % (AUTO) 0.1 % (1.0-6.0); HEMATOCRIT 33.6 % (36-46); HEMOGLOBIN 10.9 g/dL (12.0-16.0); LYMPHOCYTES # (AUTO) 0.9 K/uL (1.0-4.8); LYMPHOCYTES % (AUTO) 7.3 % (22.0-44.0); MEAN CORPUSCULAR HEMOGLOBIN 27.6 pg (26.0-34.0); MEAN CORPUSCULAR HGB CONC 32.5 G/dL (31.0-37.0); MEAN CORPUSCULAR VOLUME 85 fL (80-100); MONOCYTES # (AUTO) 0.5 K/uL (0.1-1.0); MONOCYTES % (AUTO) 3.8 % (2.0-9.0); NEUTROPHILS # (AUTO) 11.3 K/uL (1.8-7.7); PLATELET COUNT (AUTO) 120 K/uL (150-450); RED BLOOD CELL COUNT(AUTO) 3.97 MIL/uL (4.00-5.20); RED CELL DISTRIBUTION WIDTH 14.9 % (11.5-14.5); WHITE BLOOD COUNT (AUTO) 12.7 K/uL (4.5-11.0)
[2016-12-17 06:10] LABS: ALANINE AMINOTRANSFERASE 82 U/L (12-78); ALBUMIN 2.2 g/dL (3.4-5.0); ANION GAP 5 mmol/L (8-16); ASPARTATE AMINOTRANSFERASE 86 U/L (15-37); CALCIUM, TOTAL 7.9 mg/dL (8.8-10.5); CARBON DIOXIDE 28 mmol/L (22-29); CHLORIDE 105 mmol/L (98-107); CREATININE 0.76 mg/dL (0.60-1.30); GLOMERULAR FILTR. RATE CALC > 60 mL/min (>60); POTASSIUM 3.8 mmol/L (3.5-5.1); SODIUM SERUM 138 mmol/L (136-145); UREA NITROGEN, BLOOD 14 mg/dL (7-18)
[2016-12-17 06:43] LABS: NEUTROPHILS % (AUTO) 88.7 % (40.0-70.0)
[2016-12-17 07:26] LABS: GLUCOSE,POINT OF CARE 146 MG/DL (70-110)
[2016-12-17] MEDS: FERROUS SULFATE 325 MG EC TABLET PO SCH ×4 (08:00→17:30)
[2016-12-17] MEDS: MetFORMIN HCL 500 MG TABLET PO SCH ×2 (08:00→17:30)
[2016-12-17] MEDS: VANCOMYCIN HCL 1.25 GM in DEXTROSE 5%-WATER 250 ML IV SCH ×2 (08:56→22:07)
[2016-12-17] MEDS: OXYGEN THERAPY IH SCH ×2 (08:57→21:56)
[2016-12-17] MEDS: ARIPiprazole 15 MG TABLET PO SCH ×2 (09:00→09:08)
[2016-12-17] MEDS: FLUoxetine HCL 20 MG CAPSULE PO SCH ×2 (09:00→09:08)
[2016-12-17] MEDS: LISINOPRIL 20 MG TABLET PO SCH ×2 (09:00→09:09)
[2016-12-17] MEDS: OMEPRAZOLE 20 MG CAPSULE PO SCH ×2 (09:00→09:08)
[2016-12-17] MEDS: DOCUSATE SODIUM 250 MG CAPSULE PO SCH ×2 (09:00→09:08)
[2016-12-17] MEDS: OxyCODONE HCL 20 MG ER TABLET PO SCH ×3 (09:00→21:00)
[2016-12-17] MEDS ORDERED: SODIUM CHLORIDE 0.9% 250 ML IV ONE (10:00)
[2016-12-17] MEDS ORDERED: SODIUM CHLORIDE 0.9% 500 ML IV ONE (10:20)
[2016-12-17 10:26] LABS: ABG A-A DIFF O2 72.6 mmHg (10-20.0); ABG BASE EXCESS 3.2 mmol/L (-2.0-3.0); ABG HCO3 27.4 mmol/L (22.0-26.0); ABG OXYHEMOGLOBIN 95.5 % (94.0-100.0); ABG PCO2 35 mmHg (35-45); ABG PH 7.494 (7.35-7.450); TEMPERATURE, FAHRENHEIT, BG 98.4 FAHREN (96.0-98.6)
[2016-12-17 10:27] LABS: ALLEN TEST, BLOOD GAS Positive
[2016-12-17 10:48] LABS: BASOPHILS % (AUTO) 0.1 % (0.0-2.0); EOSINOPHILS % (AUTO) 0.2 % (1.0-6.0); HEMOGLOBIN 11.1 g/dL (12.0-16.0); LYMPHOCYTES # (AUTO) 0.9 K/uL (1.0-4.8); LYMPHOCYTES % (AUTO) 7.1 % (22.0-44.0); MEAN CORPUSCULAR HEMOGLOBIN 28.1 pg (26.0-34.0); MEAN CORPUSCULAR HGB CONC 32.8 G/dL (31.0-37.0); MEAN CORPUSCULAR VOLUME 86 fL (80-100); MONOCYTES # (AUTO) 0.4 K/uL (0.1-1.0); MONOCYTES % (AUTO) 3.2 % (2.0-9.0); NEUTROPHILS # (AUTO) 10.7 K/uL (1.8-7.7); PLATELET COUNT (AUTO) 120 K/uL (150-450); RED BLOOD CELL COUNT(AUTO) 3.96 MIL/uL (4.00-5.20); RED CELL DISTRIBUTION WIDTH 15.1 % (11.5-14.5)
[2016-12-17 10:50] LABS: NEUTROPHILS % (AUTO) 89.4 % (40.0-70.0)
[2016-12-17 11:05] LABS: ALANINE AMINOTRANSFERASE 75 U/L (12-78); ALBUMIN 2.3 g/dL (3.4-5.0); ANION GAP 6 mmol/L (8-16); ASPARTATE AMINOTRANSFERASE 80 U/L (15-37); CALCIUM, TOTAL 7.9 mg/dL (8.8-10.5); CARBON DIOXIDE 27 mmol/L (22-29); CHLORIDE 105 mmol/L (98-107); CREATININE 0.92 mg/dL (0.60-1.30); GLOMERULAR FILTR. RATE CALC > 60 mL/min (>60); POTASSIUM 3.9 mmol/L (3.5-5.1); SODIUM SERUM 138 mmol/L (136-145); UREA NITROGEN, BLOOD 16 mg/dL (7-18)
[2016-12-17] MEDS ORDERED: PHENYLEPHRINE 200 MG/D5%-WATER 250 ML IV ONE (11:33)
[2016-12-17 11:37] LABS: RBC MORPHOLOGY COMMENT NORMAL RBC MORPH
[2016-12-17 13:56] LABS: GLUCOSE COMMENT 1 Received Meds; GLUCOSE,POINT OF CARE 122 MG/DL (70-110)
[2016-12-17] MEDS ORDERED: SODIUM CHLORIDE 0.9% 100 ML ONE (14:39)
[2016-12-17] MEDS ORDERED: IOVERSOL 350 MG/ML 150 ML VIAL ONE (14:39)
[2016-12-17] MEDS ORDERED: HEPARIN SODIUM 25000 UNITS/D5W 250 ML IV PRN (19:53)
[2016-12-17] MEDS ORDERED: HEPARIN SODIUM,PORCINE 5,000 UNITS/ML VIAL IVP ONE (20:00)
[2016-12-17] MEDS ORDERED: HEPARIN SODIUM,PORCINE 5,000 UNITS/ML VIAL IVP PRN ×2 (20:00)
[2016-12-17] MEDS: BUDESONIDE/FORMOTEROL FUMARATE 160-4.5 MCG/PUFF 6.9 GM INHALER IH SCH (21:00)
[2016-12-17] MEDS: CALCIUM OYSTER SHELL 500 MG TABLET PO SCH (21:00)
[2016-12-18] VITALS: BP 92/52
[2016-12-18 04:00] VITALS: BP 99/109
[2016-12-18] MEDS ORDERED: SODIUM CHLORIDE 0.9% 250 ML IV ONE (04:29)
[2016-12-18 06:04] LABS: BASOPHILS % (AUTO) 0.2 % (0.0-2.0); EOSINOPHILS % (AUTO) 0.9 % (1.0-6.0); HEMATOCRIT 32.4 % (36-46); HEMOGLOBIN 10.6 g/dL (12.0-16.0); LYMPHOCYTES # (AUTO) 1.1 K/uL (1.0-4.8); LYMPHOCYTES % (AUTO) 10.1 % (22.0-44.0); MEAN CORPUSCULAR HEMOGLOBIN 28.4 pg (26.0-34.0); MEAN CORPUSCULAR HGB CONC 32.8 G/dL (31.0-37.0); MEAN CORPUSCULAR VOLUME 86 fL (80-100); MONOCYTES # (AUTO) 0.4 K/uL (0.1-1.0); MONOCYTES % (AUTO) 3.6 % (2.0-9.0); NEUTROPHILS # (AUTO) 9.5 K/uL (1.8-7.7); PLATELET COUNT (AUTO) 115 K/uL (150-450); RED BLOOD CELL COUNT(AUTO) 3.74 MIL/uL (4.00-5.20); RED CELL DISTRIBUTION WIDTH 15.2 % (11.5-14.5); WHITE BLOOD COUNT (AUTO) 11.1 K/uL (4.5-11.0)
[2016-12-18 06:22] LABS: ANION GAP 9 mmol/L (8-16); CARBON DIOXIDE 26 mmol/L (22-29); CHLORIDE 106 mmol/L (98-107); CREATININE 0.83 mg/dL (0.60-1.30); GLOMERULAR FILTR. RATE CALC > 60 mL/min (>60); POTASSIUM 3.5 mmol/L (3.5-5.1); SODIUM SERUM 141 mmol/L (136-145); UREA NITROGEN, BLOOD 22 mg/dL (7-18)
[2016-12-18 07:03] LABS: NEUTROPHILS % (AUTO) 85.2 % (40.0-70.0); RBC MORPHOLOGY COMMENT NORMAL RBC MORPH
[2016-12-18 08:00] VITALS: BP 102/64
[2016-12-18] MEDS: FERROUS SULFATE 325 MG EC TABLET PO SCH ×2 (08:00→17:30)
[2016-12-18] MEDS: MetFORMIN HCL 500 MG TABLET PO SCH ×2 (08:00→17:30)
[2016-12-18] MEDS: OxyCODONE HCL 20 MG ER TABLET PO SCH ×2 (08:25→21:00)
[2016-12-18] MEDS: BUDESONIDE/FORMOTEROL FUMARATE 160-4.5 MCG/PUFF 6.9 GM INHALER IH SCH ×2 (08:25→21:00)
[2016-12-18] MEDS: CALCIUM OYSTER SHELL 500 MG TABLET PO SCH ×4 (08:25→21:00)
[2016-12-18] MEDS: OMEPRAZOLE 20 MG CAPSULE PO SCH (08:26)
[2016-12-18] MEDS: VANCOMYCIN HCL 1.25 GM in DEXTROSE 5%-WATER 250 ML IV SCH (08:31)
[2016-12-18] MEDS: OXYGEN THERAPY IH SCH ×2 (08:32→21:36)
[2016-12-18] MEDS: ARIPiprazole 15 MG TABLET PO SCH (09:00)
[2016-12-18] MEDS: FLUoxetine HCL 20 MG CAPSULE PO SCH (09:00)
[2016-12-18] MEDS: DOCUSATE SODIUM 250 MG CAPSULE PO SCH (09:00)
[2016-12-18] MEDS ORDERED: MAGNESIUM SULFATE 2 GM in DEXTROSE 5%-WATER 50 ML IV ONE (10:30)
[2016-12-18 12:00] VITALS: BP 103/54
[2016-12-18] MEDS: PIPERACILLIN/TAZO 3.375 GM/D5W 50 ML IV SCH ×3 (12:13→21:38)
[2016-12-18 14:53] LABS: ABG A-A DIFF O2 124.9 mmHg (10-20.0); ABG BASE EXCESS 5.4 mmol/L (-2.0-3.0); ABG HCO3 29.5 mmol/L (22.0-26.0); ABG OXYHEMOGLOBIN 95.9 % (94.0-100.0); ABG PCO2 32 mmHg (35-45); ABG PH 7.556 (7.35-7.450); TEMPERATURE, FAHRENHEIT, BG 97.5 FAHREN (96.0-98.6)
[2016-12-18 16:00] VITALS: BP 137/63
[2016-12-18] MEDS: VANCOMYCIN HCL 1 GM/D5% WATER 200 ML IV SCH (17:59)
[2016-12-18 20:00] VITALS: BP 100/55
[2016-12-18] MEDS ORDERED: SODIUM CHLORIDE 0.9% 500 ML IV ONE (20:41)
[2016-12-18] MEDS: SODIUM CHLORIDE 0.9% 1,000 ML IV SCH (21:38)
[2016-12-19] VITALS: BP 94/45
[2016-12-19] MEDS: VANCOMYCIN HCL 1 GM/D5% WATER 200 ML IV SCH ×4 (00:52→23:41)
[2016-12-19 04:00] VITALS: BP 132/47
[2016-12-19] MEDS: PIPERACILLIN/TAZO 3.375 GM/D5W 50 ML IV SCH ×4 (04:30→21:43)
[2016-12-19 05:47] LABS: EOSINOPHILS % (AUTO) 3.7 % (1.0-6.0); HEMATOCRIT 30.6 % (36-46); LYMPHOCYTES # (AUTO) 0.8 K/uL (1.0-4.8); LYMPHOCYTES % (AUTO) 9.5 % (22.0-44.0); MEAN CORPUSCULAR HEMOGLOBIN 28.1 pg (26.0-34.0); MEAN CORPUSCULAR HGB CONC 32.6 G/dL (31.0-37.0); MEAN CORPUSCULAR VOLUME 86 fL (80-100); MONOCYTES # (AUTO) 0.4 K/uL (0.1-1.0); MONOCYTES % (AUTO) 4.6 % (2.0-9.0); NEUTROPHILS # (AUTO) 7.1 K/uL (1.8-7.7); NEUTROPHILS % (AUTO) 82.2 % (40.0-70.0); PLATELET COUNT (AUTO) 118 K/uL (150-450); RED BLOOD CELL COUNT(AUTO) 3.55 MIL/uL (4.00-5.20); RED CELL DISTRIBUTION WIDTH 15.2 % (11.5-14.5); WHITE BLOOD COUNT (AUTO) 8.7 K/uL (4.5-11.0)
[2016-12-19 06:10] LABS: CREATININE 0.97 mg/dL (0.60-1.30); POTASSIUM 3.6 mmol/L (3.5-5.1)
[2016-12-19 06:42] LABS: GLUCOSE,POINT OF CARE 93 MG/DL (70-110)
[2016-12-19 06:47] LABS: GLUCOSE,POINT OF CARE 87 MG/DL (70-110)
[2016-12-19 08:00] VITALS: BP 99/49
[2016-12-19] MEDS: MetFORMIN HCL 500 MG TABLET PO SCH ×2 (08:00→17:30)
[2016-12-19] MEDS: FERROUS SULFATE 325 MG EC TABLET PO SCH ×2 (08:00→17:45)
[2016-12-19] MEDS ORDERED: LIDOCAINE HCL/PF 1% 30 ML VIAL ONE (08:13)
[2016-12-19] MEDS ORDERED: HEPARIN SODIUM 1000 UNITS/NS 500 ML ONE (08:14)
[2016-12-19] MEDS: OXYGEN THERAPY IH SCH ×2 (08:28→21:42)
[2016-12-19] MEDS: CALCIUM OYSTER SHELL 500 MG TABLET PO SCH ×4 (08:29→21:43)
[2016-12-19] MEDS: ARIPiprazole 15 MG TABLET PO SCH (08:29)
[2016-12-19] MEDS: OxyCODONE HCL 20 MG ER TABLET PO SCH ×2 (08:29→20:46)
[2016-12-19] MEDS: DOCUSATE SODIUM 250 MG CAPSULE PO SCH (08:29)
[2016-12-19] MEDS: FLUoxetine HCL 20 MG CAPSULE PO SCH (08:30)
[2016-12-19] MEDS: OMEPRAZOLE 20 MG CAPSULE PO SCH (08:30)
[2016-12-19] MEDS: LISINOPRIL 20 MG TABLET PO SCH (08:31)
[2016-12-19] MEDS: BUDESONIDE/FORMOTEROL FUMARATE 160-4.5 MCG/PUFF 6.9 GM INHALER IH SCH ×2 (09:00→20:47)
[2016-12-19] MEDS ORDERED: MIDAZOLAM HCL 2 MG/2 ML VIAL ONE (09:54)
[2016-12-19] MEDS ORDERED: FentaNYL CITRATE-PF 100 MCG/2 ML VIAL ONE (09:54)
[2016-12-19] MEDS ORDERED: IOHEXOL 240 MG/ML 50 ML VIAL ONE (10:05)
[2016-12-19] MEDS ORDERED: IODIXANOL 320 MG/ML 150 ML VIAL ONE (10:06)
[2016-12-19 12:00] VITALS: BP 100/54
[2016-12-19 12:18] LABS: GLUCOSE,POINT OF CARE 102 MG/DL (70-110)
[2016-12-19] MEDS: SODIUM CHLORIDE 0.9% 1,000 ML IV SCH (12:27)
[2016-12-19 13:11] LABS: INR 1.1 (0.9-1.1); PROTHROMBIN TIME 11.7 SEC (9.4-11.6)
[2016-12-19 16:00] VITALS: BP 104/57
[2016-12-19 20:00] VITALS: BP 101/58
[2016-12-19 23:42] LABS: GLUCOSE,POINT OF CARE 105 MG/DL (70-110)
[2016-12-19 23:42] LABS: GLUCOSE,POINT OF CARE 108 MG/DL (70-110)
[2016-12-20] VITALS: BP 94/44
[2016-12-20 04:00] VITALS: BP 116/61
[2016-12-20 06:04] LABS: BASOPHILS % (AUTO) 0.2 % (0.0-2.0); EOSINOPHILS % (AUTO) 3.9 % (1.0-6.0); HEMATOCRIT 29.4 % (36-46); HEMOGLOBIN 9.6 g/dL (12.0-16.0); LYMPHOCYTES # (AUTO) 0.6 K/uL (1.0-4.8); LYMPHOCYTES % (AUTO) 8.5 % (22.0-44.0); MEAN CORPUSCULAR HEMOGLOBIN 28.4 pg (26.0-34.0); MEAN CORPUSCULAR HGB CONC 32.8 G/dL (31.0-37.0); MEAN CORPUSCULAR VOLUME 86 fL (80-100); MONOCYTES # (AUTO) 0.4 K/uL (0.1-1.0); MONOCYTES % (AUTO) 5.2 % (2.0-9.0); NEUTROPHILS # (AUTO) 5.7 K/uL (1.8-7.7); NEUTROPHILS % (AUTO) 82.2 % (40.0-70.0); PLATELET COUNT (AUTO) 124 K/uL (150-450)
[2016-12-20 06:07] LABS: GLUCOSE,POINT OF CARE 115 MG/DL (70-110)
[2016-12-20] MEDS: PIPERACILLIN/TAZO 3.375 GM/D5W 50 ML IV SCH ×4 (06:07→22:29)
[2016-12-20 06:17] LABS: CALCIUM, TOTAL 8.2 mg/dL (8.8-10.5); CREATININE 0.97 mg/dL (0.60-1.30); POTASSIUM 3.5 mmol/L (3.5-5.1)
[2016-12-20 08:00] VITALS: BP 107/56
[2016-12-20] MEDS: MetFORMIN HCL 500 MG TABLET PO SCH ×2 (08:00→16:52)
[2016-12-20] MEDS: OxyCODONE HCL 20 MG ER TABLET PO SCH ×2 (08:25→21:16)
[2016-12-20] MEDS: ARIPiprazole 15 MG TABLET PO SCH (08:25)
[2016-12-20] MEDS: BUDESONIDE/FORMOTEROL FUMARATE 160-4.5 MCG/PUFF 6.9 GM INHALER IH SCH ×2 (08:26→21:00)
[2016-12-20] MEDS: FLUoxetine HCL 20 MG CAPSULE PO SCH (08:26)
[2016-12-20] MEDS: DOCUSATE SODIUM 250 MG CAPSULE PO SCH (08:33)
[2016-12-20] MEDS: VANCOMYCIN HCL 1 GM/D5% WATER 200 ML IV SCH ×3 (08:33→23:58)
[2016-12-20] MEDS: OMEPRAZOLE 20 MG CAPSULE PO SCH (08:33)
[2016-12-20] MEDS: CALCIUM OYSTER SHELL 500 MG TABLET PO SCH ×4 (08:33→21:15)
[2016-12-20] MEDS: FERROUS SULFATE 325 MG EC TABLET PO SCH ×2 (08:33→16:52)
[2016-12-20] MEDS: OXYGEN THERAPY IH SCH ×2 (08:34→22:43)
[2016-12-20] MEDS: LISINOPRIL 20 MG TABLET PO SCH (08:34)
[2016-12-20 12:00] VITALS: BP 113/57
[2016-12-20 12:06] LABS: ABG BASE EXCESS 4.1 mmol/L (-2.0-3.0); ABG HCO3 27.9 mmol/L (22.0-26.0); ABG OXYHEMOGLOBIN 96.4 % (94.0-100.0); ABG PCO2 40 mmHg (35-45); ABG PH 7.464 (7.35-7.450); TEMPERATURE, FAHRENHEIT, BG 98.6 FAHREN (96.0-98.6)
[2016-12-20 12:25] LABS: ALLEN TEST, BLOOD GAS Positive
[2016-12-20 16:00] VITALS: BP 113/57
[2016-12-20 20:00] VITALS: BP 128/63
[2016-12-21] VITALS (8 sets, daily range): BP systolic 96–127; BP diastolic 50–78
[2016-12-21 06:06] LABS: BASOPHILS % (AUTO) 0.4 % (0.0-2.0); EOSINOPHILS % (AUTO) 5.1 % (1.0-6.0); HEMOGLOBIN 9.8 g/dL (12.0-16.0); LYMPHOCYTES # (AUTO) 0.9 K/uL (1.0-4.8); LYMPHOCYTES % (AUTO) 13.3 % (22.0-44.0); MEAN CORPUSCULAR HEMOGLOBIN 28.5 pg (26.0-34.0); MEAN CORPUSCULAR HGB CONC 32.8 G/dL (31.0-37.0); MEAN CORPUSCULAR VOLUME 87 fL (80-100); MONOCYTES # (AUTO) 0.4 K/uL (0.1-1.0); MONOCYTES % (AUTO) 6.4 % (2.0-9.0); NEUTROPHILS # (AUTO) 5.1 K/uL (1.8-7.7); NEUTROPHILS % (AUTO) 74.8 % (40.0-70.0); PLATELET COUNT (AUTO) 146 K/uL (150-450); RED BLOOD CELL COUNT(AUTO) 3.45 MIL/uL (4.00-5.20); RED CELL DISTRIBUTION WIDTH 15.1 % (11.5-14.5); WHITE BLOOD COUNT (AUTO) 6.8 K/uL (4.5-11.0)
[2016-12-21] MEDS: PIPERACILLIN/TAZO 3.375 GM/D5W 50 ML IV SCH ×4 (06:08→23:54)
[2016-12-21] MEDS ORDERED: SODIUM CHLORIDE 0.9% 250 ML IV ONE (06:14)
[2016-12-21 06:27] LABS: ANION GAP 3 mmol/L (8-16); CARBON DIOXIDE 32 mmol/L (22-29); CHLORIDE 108 mmol/L (98-107); CREATININE 0.82 mg/dL (0.60-1.30); GLOMERULAR FILTR. RATE CALC > 60 mL/min (>60); POTASSIUM 3.8 mmol/L (3.5-5.1); SODIUM SERUM 143 mmol/L (136-145); UREA NITROGEN, BLOOD 25 mg/dL (7-18)
[2016-12-21 06:37] LABS: GLUCOSE COMMENT 1 Received Meds; GLUCOSE,POINT OF CARE 132 MG/DL (70-110)
[2016-12-21 06:37] LABS: GLUCOSE,POINT OF CARE 123 MG/DL (70-110)
[2016-12-21 06:37] LABS: GLUCOSE,POINT OF CARE 139 MG/DL (70-110)
[2016-12-21] MEDS: FERROUS SULFATE 325 MG EC TABLET PO SCH ×2 (08:28→17:33)
[2016-12-21] MEDS: MetFORMIN HCL 500 MG TABLET PO SCH ×2 (08:28→17:33)
[2016-12-21] MEDS: OXYGEN THERAPY IH SCH ×2 (08:28→21:17)
[2016-12-21] MEDS: CALCIUM OYSTER SHELL 500 MG TABLET PO SCH ×4 (08:29→21:53)
[2016-12-21] MEDS: ARIPiprazole 15 MG TABLET PO SCH (08:29)
[2016-12-21] MEDS: LISINOPRIL 20 MG TABLET PO SCH (08:29)
[2016-12-21] MEDS: FLUoxetine HCL 20 MG CAPSULE PO SCH (08:29)
[2016-12-21] MEDS: OMEPRAZOLE 20 MG CAPSULE PO SCH (08:30)
[2016-12-21] MEDS: VANCOMYCIN HCL 750 MG in DEXTROSE 5%-WATER 150 ML IV SCH ×2 (08:32→16:24)
[2016-12-21] MEDS: DOCUSATE SODIUM 250 MG CAPSULE PO SCH (08:33)
[2016-12-21] MEDS: BUDESONIDE/FORMOTEROL FUMARATE 160-4.5 MCG/PUFF 6.9 GM INHALER IH SCH (08:33)
[2016-12-21] MEDS: OxyCODONE HCL 20 MG ER TABLET PO SCH ×2 (09:06→21:53)
[2016-12-22] MEDS: BUDESONIDE/FORMOTEROL FUMARATE 160-4.5 MCG/PUFF 6.9 GM INHALER IH SCH ×3 (00:13→21:00)
[2016-12-22] MEDS: VANCOMYCIN HCL 750 MG in DEXTROSE 5%-WATER 150 ML IV SCH ×3 (00:14→16:12)
[2016-12-22] MEDS ORDERED: SODIUM CHLORIDE 0.9% 250 ML IV ONE (00:19)
[2016-12-22] MEDS: PIPERACILLIN/TAZO 3.375 GM/D5W 50 ML IV SCH ×4 (04:57→22:31)
[2016-12-22 05:34] VITALS: BP 112/64
[2016-12-22 06:56] LABS: ANION GAP 4 mmol/L (8-16); CARBON DIOXIDE 31 mmol/L (22-29); CHLORIDE 107 mmol/L (98-107); CREATININE 0.85 mg/dL (0.60-1.30); GLOMERULAR FILTR. RATE CALC > 60 mL/min (>60); POTASSIUM 3.9 mmol/L (3.5-5.1); SODIUM SERUM 142 mmol/L (136-145); UREA NITROGEN, BLOOD 20 mg/dL (7-18)
[2016-12-22 08:06] VITALS: BP 110/52
[2016-12-22] MEDS: FLUoxetine HCL 20 MG CAPSULE PO SCH (08:50)
[2016-12-22] MEDS: MetFORMIN HCL 500 MG TABLET PO SCH ×2 (08:51→17:05)
[2016-12-22] MEDS: ARIPiprazole 15 MG TABLET PO SCH (08:51)
[2016-12-22] MEDS: LISINOPRIL 20 MG TABLET PO SCH (08:52)
[2016-12-22] MEDS: OMEPRAZOLE 20 MG CAPSULE PO SCH (08:52)
[2016-12-22] MEDS: OxyCODONE HCL 20 MG ER TABLET PO SCH ×3 (08:52→21:17)
[2016-12-22] MEDS: CALCIUM OYSTER SHELL 500 MG TABLET PO SCH ×5 (08:52→21:17)
[2016-12-22] MEDS: DOCUSATE SODIUM 250 MG CAPSULE PO SCH (09:00)
[2016-12-22] MEDS: OXYGEN THERAPY IH SCH ×2 (10:27→21:17)
[2016-12-22 11:18] VITALS: BP 111/59
[2016-12-22 16:39] VITALS: BP 122/67
[2016-12-22] MEDS: FERROUS SULFATE 300 MG/5 ML LIQUID UDCUP NG SCH (17:05)
[2016-12-22 19:42] VITALS: BP 100/58
[2016-12-23 00:04] VITALS: BP 116/74
[2016-12-23] MEDS: VANCOMYCIN HCL 750 MG in DEXTROSE 5%-WATER 150 ML IV SCH ×4 (00:41→23:58)
[2016-12-23 03:44] VITALS: BP 124/85
[2016-12-23] MEDS: PIPERACILLIN/TAZO 3.375 GM/D5W 50 ML IV SCH ×4 (04:41→22:29)
[2016-12-23 06:50] LABS: ANION GAP 6 mmol/L (8-16); CALCIUM, TOTAL 8.3 mg/dL (8.8-10.5); CARBON DIOXIDE 31 mmol/L (22-29); CHLORIDE 106 mmol/L (98-107); CREATININE 0.85 mg/dL (0.60-1.30); GLOMERULAR FILTR. RATE CALC > 60 mL/min (>60); POTASSIUM 3.8 mmol/L (3.5-5.1); SODIUM SERUM 143 mmol/L (136-145); UREA NITROGEN, BLOOD 19 mg/dL (7-18)
[2016-12-23 08:00] VITALS: BP 100/63
[2016-12-23] MEDS: BUDESONIDE/FORMOTEROL FUMARATE 160-4.5 MCG/PUFF 6.9 GM INHALER IH SCH ×2 (08:33→21:00)
[2016-12-23] MEDS: ARIPiprazole 15 MG TABLET PO SCH (08:49)
[2016-12-23] MEDS: FERROUS SULFATE 300 MG/5 ML LIQUID UDCUP NG SCH ×2 (08:49→18:00)
[2016-12-23] MEDS: OXYGEN THERAPY IH SCH ×2 (08:49→22:28)
[2016-12-23] MEDS: MetFORMIN HCL 500 MG TABLET PO SCH ×2 (08:49→18:00)
[2016-12-23] MEDS: CALCIUM OYSTER SHELL 500 MG TABLET PO SCH ×3 (08:50→17:54)
[2016-12-23] MEDS: OMEPRAZOLE 20 MG CAPSULE PO SCH (08:50)
[2016-12-23] MEDS: OxyCODONE HCL 20 MG ER TABLET PO SCH ×2 (08:50→21:00)
[2016-12-23] MEDS: DOCUSATE SODIUM 250 MG CAPSULE PO SCH (08:50)
[2016-12-23] MEDS: LISINOPRIL 20 MG TABLET PO SCH (08:51)
[2016-12-23] MEDS: FLUoxetine HCL 20 MG CAPSULE PO SCH (08:51)
[2016-12-23] MEDS: POLYETHYLENE GLYCOL 3350 17 GM PACKET PO PRN (08:52)
[2016-12-23 11:55] VITALS: BP 107/59
[2016-12-23 16:02] VITALS: BP 109/60
[2016-12-23 19:12] VITALS: BP 102/61
[2016-12-23] MEDS: CALCIUM CARBONATE 500 MG CHEWABLE TABLET NG SCH (22:28)
[2016-12-24 00:13] VITALS: BP 99/54
[2016-12-24] MEDS ORDERED: SODIUM CHLORIDE 0.9% 500 ML IV ONE (03:55)
[2016-12-24] MEDS: PIPERACILLIN/TAZO 3.375 GM/D5W 50 ML IV SCH ×4 (03:59→21:29)
[2016-12-24 05:07] VITALS: BP 105/61
[2016-12-24 07:24] LABS: BASOPHILS % (AUTO) 0.1 % (0.0-2.0); EOSINOPHILS % (AUTO) 2.5 % (1.0-6.0); HEMATOCRIT 33.4 % (36-46); HEMOGLOBIN 10.8 g/dL (12.0-16.0); LYMPHOCYTES % (AUTO) 9.4 % (22.0-44.0); MEAN CORPUSCULAR HEMOGLOBIN 28.3 pg (26.0-34.0); MEAN CORPUSCULAR HGB CONC 32.4 G/dL (31.0-37.0); MEAN CORPUSCULAR VOLUME 87 fL (80-100); MONOCYTES # (AUTO) 0.6 K/uL (0.1-1.0); MONOCYTES % (AUTO) 5.4 % (2.0-9.0); NEUTROPHILS % (AUTO) 82.6 % (40.0-70.0); PLATELET COUNT (AUTO) 203 K/uL (150-450); RED BLOOD CELL COUNT(AUTO) 3.83 MIL/uL (4.00-5.20); RED CELL DISTRIBUTION WIDTH 15.7 % (11.5-14.5); WHITE BLOOD COUNT (AUTO) 10.9 K/uL (4.5-11.0)
[2016-12-24 07:48] VITALS: BP 112/69
[2016-12-24 07:57] LABS: ANION GAP 6 mmol/L (8-16); CALCIUM, TOTAL 8.3 mg/dL (8.8-10.5); CARBON DIOXIDE 31 mmol/L (22-29); CHLORIDE 103 mmol/L (98-107); CREATININE 0.84 mg/dL (0.60-1.30); GLOMERULAR FILTR. RATE CALC > 60 mL/min (>60); SODIUM SERUM 140 mmol/L (136-145); UREA NITROGEN, BLOOD 20 mg/dL (7-18)
[2016-12-24] MEDS: OXYGEN THERAPY IH SCH ×2 (08:52→20:00)
[2016-12-24] MEDS: DOCUSATE SODIUM 250 MG CAPSULE PO SCH (08:53)
[2016-12-24] MEDS: OMEPRAZOLE 20 MG CAPSULE PO SCH (08:53)
[2016-12-24] MEDS: ARIPiprazole 15 MG TABLET PO SCH (08:54)
[2016-12-24] MEDS: FLUoxetine HCL 20 MG CAPSULE PO SCH (08:54)
[2016-12-24] MEDS: MetFORMIN HCL 500 MG TABLET PO SCH ×2 (08:56→17:42)
[2016-12-24] MEDS: FERROUS SULFATE 300 MG/5 ML LIQUID UDCUP NG SCH ×2 (08:57→17:33)
[2016-12-24] MEDS: CALCIUM CARBONATE 500 MG CHEWABLE TABLET NG SCH ×4 (08:57→21:08)
[2016-12-24] MEDS: LISINOPRIL 20 MG TABLET PO SCH (08:58)
[2016-12-24] MEDS: OxyCODONE HCL 20 MG ER TABLET PO SCH ×2 (08:58→21:08)
[2016-12-24] MEDS: BUDESONIDE/FORMOTEROL FUMARATE 160-4.5 MCG/PUFF 6.9 GM INHALER IH SCH ×3 (09:00→21:08)
[2016-12-24] MEDS ORDERED: SODIUM CHLORIDE 0.9% 250 ML IV ONE (09:01)
[2016-12-24] MEDS: POLYETHYLENE GLYCOL 3350 17 GM PACKET PO PRN (09:02)
[2016-12-24] MEDS: VANCOMYCIN HCL 750 MG in DEXTROSE 5%-WATER 150 ML IV SCH ×2 (10:59→17:12)
[2016-12-24 11:27] VITALS: BP 93/59
[2016-12-24 15:27] VITALS: BP 134/66
[2016-12-24] MEDS ORDERED: BISACODYL 10 MG RECTAL RECTAL SUPPOSITORY PR PRN (17:30)
[2016-12-24 20:09] VITALS: BP 100/55
[2016-12-25] VITALS (9 sets, daily range): BP systolic 90–105; BP diastolic 50–63
[2016-12-25] MEDS: VANCOMYCIN HCL 750 MG in DEXTROSE 5%-WATER 150 ML IV SCH ×3 (00:48→15:57)
[2016-12-25] MEDS: PIPERACILLIN/TAZO 3.375 GM/D5W 50 ML IV SCH ×4 (04:53→23:27)
[2016-12-25 07:58] LABS: ANION GAP 8 mmol/L (8-16); CALCIUM, TOTAL 8.5 mg/dL (8.8-10.5); CARBON DIOXIDE 29 mmol/L (22-29); CHLORIDE 103 mmol/L (98-107); CREATININE 0.92 mg/dL (0.60-1.30); GLOMERULAR FILTR. RATE CALC > 60 mL/min (>60); POTASSIUM 4.6 mmol/L (3.5-5.1); SODIUM SERUM 140 mmol/L (136-145); UREA NITROGEN, BLOOD 25 mg/dL (7-18)
[2016-12-25] MEDS: OXYGEN THERAPY IH SCH ×2 (08:40→23:02)
[2016-12-25] MEDS: BUDESONIDE/FORMOTEROL FUMARATE 160-4.5 MCG/PUFF 6.9 GM INHALER IH SCH ×2 (09:00→21:00)
[2016-12-25] MEDS: LISINOPRIL 20 MG TABLET PO SCH (09:00)
[2016-12-25] MEDS: OxyCODONE HCL 20 MG ER TABLET PO SCH ×2 (09:00→23:02)
[2016-12-25] MEDS: CALCIUM CARBONATE 500 MG CHEWABLE TABLET NG SCH ×4 (09:46→23:02)
[2016-12-25] MEDS: FERROUS SULFATE 300 MG/5 ML LIQUID UDCUP NG SCH ×2 (09:46→17:42)
[2016-12-25] MEDS: ARIPiprazole 15 MG TABLET PO SCH (09:47)
[2016-12-25] MEDS: DOCUSATE SODIUM 250 MG CAPSULE PO SCH (09:47)
[2016-12-25] MEDS: FLUoxetine HCL 20 MG CAPSULE PO SCH (09:48)
[2016-12-25] MEDS: OMEPRAZOLE 20 MG CAPSULE PO SCH (09:48)
[2016-12-25] MEDS: POLYETHYLENE GLYCOL 3350 17 GM PACKET PO PRN (09:49)
[2016-12-25] MEDS ORDERED: SODIUM PHOS/SODIUM BIPHOS 133 ML ENEMA PR PRN ×2 (10:00→22:00)
[2016-12-25] MEDS: MetFORMIN HCL 500 MG TABLET PO SCH ×2 (10:35→17:42)
[2016-12-25] MEDS: SODIUM CHLORIDE 0.45% 1,000 ML IV SCH ×2 (10:42→23:24)
[2016-12-26] MEDS: VANCOMYCIN HCL 750 MG in DEXTROSE 5%-WATER 150 ML IV SCH ×3 (02:56→16:02)
[2016-12-26 03:51] VITALS: BP 99/59
[2016-12-26] MEDS: PIPERACILLIN/TAZO 3.375 GM/D5W 50 ML IV SCH ×3 (06:07→17:31)
[2016-12-26] MEDS: SODIUM CHLORIDE 0.45% 1,000 ML IV SCH (06:11)
[2016-12-26 07:13] VITALS: BP 90/58
[2016-12-26] MEDS: OXYGEN THERAPY IH SCH (08:00)
[2016-12-26] MEDS: MetFORMIN HCL 500 MG TABLET PO SCH ×2 (08:00→17:37)
[2016-12-26] MEDS: FERROUS SULFATE 300 MG/5 ML LIQUID UDCUP NG SCH ×2 (08:00→17:37)
[2016-12-26 08:04] LABS: ANION GAP 9 mmol/L (8-16); CALCIUM, TOTAL 8.6 mg/dL (8.8-10.5); CARBON DIOXIDE 27 mmol/L (22-29); CHLORIDE 101 mmol/L (98-107); CREATININE 0.94 mg/dL (0.60-1.30); GLOMERULAR FILTR. RATE CALC > 60 mL/min (>60); POTASSIUM 4.3 mmol/L (3.5-5.1); SODIUM SERUM 137 mmol/L (136-145); UREA NITROGEN, BLOOD 22 mg/dL (7-18)
[2016-12-26] MEDS: OMEPRAZOLE 20 MG CAPSULE PO SCH (09:00)
[2016-12-26] MEDS: FLUoxetine HCL 20 MG CAPSULE PO SCH (09:00)
[2016-12-26] MEDS: LISINOPRIL 20 MG TABLET PO SCH (09:00)
[2016-12-26] MEDS: CALCIUM CARBONATE 500 MG CHEWABLE TABLET NG SCH ×3 (09:00→16:02)
[2016-12-26] MEDS: BUDESONIDE/FORMOTEROL FUMARATE 160-4.5 MCG/PUFF 6.9 GM INHALER IH SCH (09:00)
[2016-12-26] MEDS: DOCUSATE SODIUM 250 MG CAPSULE PO SCH (09:00)
[2016-12-26] MEDS: ARIPiprazole 15 MG TABLET PO SCH (09:00)
[2016-12-26] MEDS: OxyCODONE HCL 20 MG ER TABLET PO SCH (09:00)
[2016-12-26 11:43] VITALS: BP 86/54
[2016-12-26 12:31] VITALS: BP 106/59
[2016-12-26 17:05] VITALS: BP 100/60
== END 2016-12-26 20:35 | DRG 463 ==
LOC: EMS 12:13 → 5N 18:27 → ICU 12-16 18:00 → ICUN 12-17 19:42 → 5N 12-21 16:55
PROVIDERS: ADMIT Family Medicine; ATTEND Family Medicine
PROC: 0SP90JZ Removal of Synthetic Substitute from Right Hip Joint, Open Approach (ICD-10-PCS; 2016-12-16)
PROC: 0SB90ZZ Excision of Right Hip Joint, Open Approach (ICD-10-PCS; 2016-12-16)
PROC: 30233K1 Transfusion of Nonautologous Frozen Plasma into Peripheral Vein, Percutaneous Approach (ICD-10-PCS; 2016-12-16)
PROC: 30233N1 Transfusion of Nonautologous Red Blood Cells into Peripheral Vein, Percutaneous Approach (ICD-10-PCS; 2016-12-16)
PROC: 0SH908Z Insertion of Spacer into Right Hip Joint, Open Approach (ICD-10-PCS; principal; 2016-12-16 13:00)
PROC: 06H03DZ Insertion of Intraluminal Device into Inferior Vena Cava, Percutaneous Approach (ICD-10-PCS; 2016-12-19)
DX: T84.51XA Infection and inflammatory reaction due to internal right hip prosthesis, initial encounter (principal); G93.40 Encephalopathy, unspecified; I26.99 Other pulmonary embolism without acute cor pulmonale; J96.01 Acute respiratory failure with hypoxia; I63.9 Cerebral infarction, unspecified; M86.9 Osteomyelitis, unspecified; R57.9 Shock, unspecified; M19.90 Unspecified osteoarthritis, unspecified site; E11.69 Type 2 diabetes mellitus with other specified complication; F20.9 Schizophrenia, unspecified; G89.4 Chronic pain syndrome; F31.9 Bipolar disorder, unspecified; Z96.641 Presence of right artificial hip joint; B19.20 Unspecified viral hepatitis C without hepatic coma; D64.9 Anemia, unspecified; F17.210 Nicotine dependence, cigarettes, uncomplicated; E78.5 Hyperlipidemia, unspecified; I50.9 Heart failure, unspecified; J44.9 Chronic obstructive pulmonary disease, unspecified; I11.0 Hypertensive heart disease with heart failure; K74.60 Unspecified cirrhosis of liver; Y83.1 Surgical operation with implant of artificial internal device as the cause of abnormal reaction of the patient, or of later complication, without mention of misadventure at the time of the procedure; Z88.0 Allergy status to penicillin; Z86.711 Personal history of pulmonary embolism; Y92.89 Other specified places as the place of occurrence of the external cause; Z88.2 Allergy status to sulfonamides; Z88.6 Allergy status to analgesic agent; Z79.4 Long term (current) use of insulin; Z79.891 Long term (current) use of opiate analgesic; Z79.51 Long term (current) use of inhaled steroids; Z79.899 Other long term (current) drug therapy; Z98.890 Other specified postprocedural states
CPT/HCPCS: 37619; 51702; 70450; 70551; 71275; 73502; 74000; 82271; 82805; 82962; 83735; 85384; 86850; 86900; 86901; 86922; 86927; 87081; 88300; 92526; 92610; 93005; 93306; 95816; 96361; 96374; 96375; 97163; 99285; J1170; J1644; J2250; J2270; J2370; J2405; J2543; J2704; J3010; J3260; J3370; J3475; J3490; J7030; J7040; J7050; J7060; J7120; P9016; P9017; Q9966; Q9967

== ENCOUNTER 2017-11-11 21:10 | Emergency (ER) | payer MEDICARE, MEDICAID ==
[~2017-11-11] VITALS: Ht 175.3 cm; Wt 81.4 kg
[~2017-11-11 21:10] MED LIST changes: +ARIP15TA2 PO; -ARIP15TA3 PO; -LISI-661 PO; +LISI-662 PO; -PANT40TA25 PO
[2017-11-11 21:22] LABS: GLUCOSE,POINT OF CARE 100 MG/DL (70-110)
[2017-11-11] MEDS ORDERED: DOXY50 PO (21:30)
[2017-11-11] MEDS ORDERED: TRAM50TA4 PO (21:30)
[2017-11-11] MEDS ORDERED: HYDR-309 PO (21:30)
[2017-11-11] MEDS ORDERED: KETOROLAC TROMETHAMINE 60 MG/2 ML VIAL IM ONE (21:45)
[2017-11-11] MEDS ORDERED: HYDROCODONE/ACETAMINOPHEN 5-325 MG TABLET PO ONE (22:00)
[2017-11-11] MEDS ORDERED: CYCLOBENZAPRINE HCL 10 MG TABLET PO ONE (22:00)
[2017-11-11 22:30] VITALS: BP 123/80
== END 2017-11-11 23:41 | disposition home or self-care (01) ==
LOC: EMS 21:12
DX: Z76.0 Encounter for issue of repeat prescription (principal); Z79.899 Other long term (current) drug therapy; I10 Essential (primary) hypertension; E11.9 Type 2 diabetes mellitus without complications; F31.9 Bipolar disorder, unspecified; F20.9 Schizophrenia, unspecified; F17.210 Nicotine dependence, cigarettes, uncomplicated; M19.90 Unspecified osteoarthritis, unspecified site
CPT/HCPCS: 82962; 96372; 99283; J1885

== ENCOUNTER 2017-11-19 17:42 | Inpatient (IN) | payer MEDICARE, MEDICAID ==
[~2017-11-19] VITALS: Ht 175.3 cm; Wt 88.6 kg
[~2017-11-19 17:42] MED LIST changes: -BACTDSB PO; -DIPH25 PO; +DOXY50 PO; +HYDR-309 PO; -INSNOV SQ; -OXYC20TA76 PO; +TRAM50TA4 PO
[2017-11-19 18:22] LABS: GLUCOSE,POINT OF CARE 122 MG/DL (70-110)
[2017-11-19] MEDS ORDERED: KETOROLAC TROMETHAMINE 30 MG/ML VIAL IVP ONE (18:45)
[2017-11-19] MEDS ORDERED: KETOROLAC TROMETHAMINE 60 MG/2 ML VIAL IM ONE (19:45)
[2017-11-19 20:13] LABS: BASOPHILS % (AUTO) 0.3 % (0.0-2.0); EOSINOPHILS % (AUTO) 0.5 % (1.0-6.0); HEMATOCRIT 44.7 % (36-46); HEMOGLOBIN 14.7 g/dL (12.0-16.0); LYMPHOCYTES # (AUTO) 1.7 K/uL (1.0-4.8); MEAN CORPUSCULAR HEMOGLOBIN 25.9 pg (26.0-34.0); MEAN CORPUSCULAR HGB CONC 32.9 G/dL (31.0-37.0); MEAN CORPUSCULAR VOLUME 79 fL (80-100); MONOCYTES # (AUTO) 0.9 K/uL (0.1-1.0); MONOCYTES % (AUTO) 7.1 % (2.0-9.0); NEUTROPHILS % (AUTO) 79.1 % (40.0-70.0); PLATELET COUNT (AUTO) 234 K/uL (150-450); RED BLOOD CELL COUNT(AUTO) 5.69 MIL/uL (4.00-5.20); RED CELL DISTRIBUTION WIDTH 15.8 % (11.5-14.5)
[2017-11-19] MEDS ORDERED: ZINC OXIDE 16% PASTE 57 GM TUBE TP ONE (20:15)
[2017-11-19] MEDS ORDERED: TERBINAFINE HCL 1% 30 GM CREAM TP ONE (20:15)
[2017-11-19 20:42] LABS: AMPHET/METH SCREEN,URINE NEGATIVE (NEGATIVE); BARBITURATE SCREEN, URINE NEGATIVE (NEGATIVE); BENZODIAZEPINES SCREEN,URINE NEGATIVE (NEGATIVE); CANNABINOID SCREEN,URINE NEGATIVE (NEGATIVE); COCAINE SCREEN,URINE NEGATIVE (NEGATIVE); METHADONE SCREEN, URINE NEGATIVE (NEGATIVE); OPIATE SCREEN,URINE POSITIVE (NEGATIVE)
[2017-11-19 20:51] LABS: PHENCYCLIDINE SCREEN,URINE NEGATIVE (NEGATIVE)
[2017-11-19 20:58] LABS: ANION GAP 10 mmol/L (8-16); CALCIUM, TOTAL 9.6 mg/dL (8.8-10.5); CARBON DIOXIDE 27 mmol/L (22-29); CHLORIDE 101 mmol/L (98-107); CREATININE 1.12 mg/dL (0.60-1.30); GLOMERULAR FILTR. RATE CALC 49 mL/min (>60); GLUCOSE,RANDOM 120 mg/dL (70-110); POTASSIUM 4.4 mmol/L (3.5-5.1); SODIUM SERUM 138 mmol/L (136-145); UREA NITROGEN, BLOOD 27 mg/dL (7-18)
[2017-11-19 21:06] LABS: ALANINE AMINOTRANSFERASE 60 U/L (12-78); ALBUMIN 3.6 g/dL (3.4-5.0); ALKALINE PHOSPHATASE 243 U/L (46-116); ASPARTATE AMINOTRANSFERASE 66 U/L (15-37); BILIRUBIN,TOTAL 0.3 mg/dL (0.1-1.0)
[2017-11-19 21:08] LABS: AMMONIA 26 umol/L (11-32)
[2017-11-19 21:10] LABS: TROPONIN I < 0.02 ng/mL (0.00-0.05)
[2017-11-19 21:18] LABS: ACETAMINOPHEN < 2 mcg/mL (10-30); SALICYLATE < 2.8 mg/dL (2.8-20.0)
[2017-11-19 21:19] LABS: B-TYPE NATRIURETIC PEPTIDE 7 pg/mL (0-100)
[2017-11-19 21:19] LABS: BILIRUBIN,URINE NEGATIVE (NEGATIVE); GLUCOSE, URINE (UA) NEGATIVE (NEGATIVE); KETONES,URINE NEGATIVE (NEGATIVE); LEUKOCYTE ESTERASE ,URINE MODERATE (NEGATIVE); NITRATE,URINE POSITIVE (NEGATIVE); OCCULT BLOOD,URINE TRACE (NEGATIVE); PH,URINE 5.5 (5.0-8.0); PROTEIN,URINE NEGATIVE (NEGATIVE); UROBILINOGEN,URINE 0.2 mg/dL (<=1.0)
[2017-11-19] MEDS ORDERED: SODIUM CHLORIDE 0.9% 1,000 ML IV ONE (21:30)
[2017-11-19] MEDS ORDERED: SODIUM CHLORIDE 0.9% 2,000 ML IV ONE (21:30)
[2017-11-19 21:32] LABS: APPEARANCE,URINE Y (CLEAR)
[2017-11-19 21:34] LABS: RBC,URINE 0-2 /HPF (0-2)
[2017-11-19 21:35] LABS: BACTERIA,URINE Moderate /HPF (None Seen); WBC,URINE 51-100 /HPF (0-5)
[2017-11-19 21:36] LABS: SQUAMOUS EPITHELIAL CELL,UR Few /LPF (None Seen)
[2017-11-19] MEDS ORDERED: 0.9% SODIUM CHLORIDE 10 ML SYRINGE IVP PRN ×2 (21:45→23:45)
[2017-11-19] MEDS ORDERED: ACETAMINOPHEN 325 MG TABLET PO PRN ×2 (21:45→23:45)
[2017-11-19] MEDS ORDERED: ONDANSETRON HCL 4 MG/2 ML VIAL IVP PRN ×2 (21:45→23:45)
[2017-11-19] MEDS ORDERED: CefTRIAXone SODIUM 1 GM in DEXTROSE 5%-WATER 10 ML IV ONE (21:45)
[2017-11-19 23:00] VITALS: BP 112/81
[2017-11-19] MEDS ORDERED: IPRATROPIUM BROMIDE 0.5 MG/2.5 ML NEB SOLUTION NEB PRN (23:45)
[2017-11-19] MEDS ORDERED: ALBUTEROL SULFATE 2.5 MG/0.5 ML NEB SOLUTION NEB PRN (23:45)
[2017-11-20] VITALS (8 sets, daily range): BP systolic 90–128; BP diastolic 48–79
[2017-11-20] MEDS: HYDROCODONE/ACETAMINOPHEN 5-325 MG TABLET PO PRN ×3 (02:45→17:36)
[2017-11-20] MEDS: TraMADol HCL 50 MG TABLET PO PRN ×2 (06:17→20:01)
[2017-11-20 06:31] LABS: CALCIUM, TOTAL 9.2 mg/dL (8.8-10.5); CREATININE 0.98 mg/dL (0.60-1.30); MAGNESIUM 2.1 mg/dL (1.80-2.40); POTASSIUM 4.5 mmol/L (3.5-5.1)
[2017-11-20 07:21] LABS: BASOPHILS % (AUTO) 0.6 % (0.0-2.0); EOSINOPHILS % (AUTO) 1.6 % (1.0-6.0); HEMOGLOBIN 12.3 g/dL (12.0-16.0); LYMPHOCYTES # (AUTO) 2.4 K/uL (1.0-4.8); LYMPHOCYTES % (AUTO) 25.4 % (22.0-44.0); MEAN CORPUSCULAR HEMOGLOBIN 25.9 pg (26.0-34.0); MEAN CORPUSCULAR HGB CONC 33.2 G/dL (31.0-37.0); MEAN CORPUSCULAR VOLUME 78 fL (80-100); MONOCYTES % (AUTO) 10.7 % (2.0-9.0); NEUTROPHILS # (AUTO) 5.9 K/uL (1.8-7.7); NEUTROPHILS % (AUTO) 61.7 % (40.0-70.0); PLATELET COUNT (AUTO) 199 K/uL (150-450); RED BLOOD CELL COUNT(AUTO) 4.73 MIL/uL (4.00-5.20); RED CELL DISTRIBUTION WIDTH 15.2 % (11.5-14.5)
[2017-11-20] MEDS: LISINOPRIL 20 MG TABLET PO SCH (08:46)
[2017-11-20] MEDS: DOCUSATE SODIUM 250 MG CAPSULE PO SCH (08:46)
[2017-11-20] MEDS: LEVOFLOXACIN 500 MG TABLET PO SCH (08:46)
[2017-11-20] MEDS: FERROUS SULFATE 325 MG EC TABLET PO SCH ×2 (08:46→17:35)
[2017-11-20] MEDS: OMEPRAZOLE 20 MG CAPSULE PO SCH (08:47)
[2017-11-20] MEDS: FLUoxetine HCL 20 MG CAPSULE PO SCH (08:47)
[2017-11-20] MEDS: BUDESONIDE/FORMOTEROL FUMARATE 160-4.5 MCG/PUFF 6.9 GM INHALER IH SCH ×2 (08:47→19:59)
[2017-11-20] MEDS: ARIPiprazole 15 MG TABLET PO SCH (08:47)
[2017-11-20] MEDS: CALCIUM OYSTER SHELL 500 MG TABLET PO SCH ×4 (08:48→19:58)
[2017-11-21] MEDS: HYDROCODONE/ACETAMINOPHEN 5-325 MG TABLET PO PRN ×3 (02:20→20:07)
[2017-11-21 06:16] VITALS: BP_SYST 105; BP_SYST 90; BP_DIAS 48; BP_DIAS 55
[2017-11-21 06:54] LABS: BASOPHILS % (AUTO) 0.4 % (0.0-2.0); EOSINOPHILS % (AUTO) 1.6 % (1.0-6.0); HEMATOCRIT 37.3 % (36-46); HEMOGLOBIN 12.7 g/dL (12.0-16.0); LYMPHOCYTES # (AUTO) 1.5 K/uL (1.0-4.8); LYMPHOCYTES % (AUTO) 20.2 % (22.0-44.0); MEAN CORPUSCULAR HEMOGLOBIN 26.8 pg (26.0-34.0); MEAN CORPUSCULAR VOLUME 79 fL (80-100); MONOCYTES # (AUTO) 0.6 K/uL (0.1-1.0); MONOCYTES % (AUTO) 8.7 % (2.0-9.0); NEUTROPHILS % (AUTO) 69.1 % (40.0-70.0); PLATELET COUNT (AUTO) 199 K/uL (150-450); RED BLOOD CELL COUNT(AUTO) 4.73 MIL/uL (4.00-5.20); RED CELL DISTRIBUTION WIDTH 15.4 % (11.5-14.5)
[2017-11-21 07:12] LABS: CALCIUM, TOTAL 9.1 mg/dL (8.8-10.5); CREATININE 1.04 mg/dL (0.60-1.30); MAGNESIUM 2.1 mg/dL (1.80-2.40); POTASSIUM 4.5 mmol/L (3.5-5.1)
[2017-11-21 07:25] VITALS: BP 103/65
[2017-11-21] MEDS: FERROUS SULFATE 325 MG EC TABLET PO SCH ×2 (09:06→17:45)
[2017-11-21] MEDS: ARIPiprazole 15 MG TABLET PO SCH (09:07)
[2017-11-21] MEDS: DOCUSATE SODIUM 250 MG CAPSULE PO SCH (09:07)
[2017-11-21] MEDS: BUDESONIDE/FORMOTEROL FUMARATE 160-4.5 MCG/PUFF 6.9 GM INHALER IH SCH ×2 (09:07→20:02)
[2017-11-21] MEDS: CALCIUM OYSTER SHELL 500 MG TABLET PO SCH ×4 (09:08→20:02)
[2017-11-21] MEDS: OMEPRAZOLE 20 MG CAPSULE PO SCH (09:08)
[2017-11-21] MEDS: LEVOFLOXACIN 500 MG TABLET PO SCH (09:08)
[2017-11-21] MEDS: LISINOPRIL 20 MG TABLET PO SCH (09:09)
[2017-11-21] MEDS: FLUoxetine HCL 20 MG CAPSULE PO SCH (09:09)
[2017-11-21] MEDS: TraMADol HCL 50 MG TABLET PO PRN ×2 (09:10→21:48)
[2017-11-21 11:25] VITALS: BP 118/73
[2017-11-21 15:00] VITALS: BP 122/72
[2017-11-21] MEDS: DiphenhydrAMINE HCL 25 MG CAPSULE PO PRN (18:50)
[2017-11-21 20:07] VITALS: BP 103/62
[2017-11-21] MEDS ORDERED: SODIUM CHLORIDE 0.9% 500 ML IV ONE (20:14)
[2017-11-21] MEDS: MEROPENEM 1 GM in SODIUM CHLORIDE 0.9% 100 ML IV SCH (20:24)
[2017-11-21 23:56] VITALS: BP 99/56
[2017-11-22] MEDS: DiphenhydrAMINE HCL 25 MG CAPSULE PO PRN ×2 (01:58→10:46)
[2017-11-22] MEDS: HYDROCODONE/ACETAMINOPHEN 5-325 MG TABLET PO PRN ×3 (01:58→14:55)
[2017-11-22 06:02] VITALS: BP 123/73
[2017-11-22 08:02] VITALS: BP 121/81
[2017-11-22] MEDS: ARIPiprazole 15 MG TABLET PO SCH (08:40)
[2017-11-22] MEDS: FERROUS SULFATE 325 MG EC TABLET PO SCH ×2 (08:40→17:58)
[2017-11-22] MEDS: MEROPENEM 1 GM in SODIUM CHLORIDE 0.9% 100 ML IV SCH ×2 (08:40→19:58)
[2017-11-22] MEDS: DOCUSATE SODIUM 250 MG CAPSULE PO SCH (08:41)
[2017-11-22] MEDS: CALCIUM OYSTER SHELL 500 MG TABLET PO SCH ×4 (08:41→21:14)
[2017-11-22] MEDS: FLUoxetine HCL 20 MG CAPSULE PO SCH (08:41)
[2017-11-22] MEDS: LISINOPRIL 20 MG TABLET PO SCH (08:41)
[2017-11-22] MEDS: OMEPRAZOLE 20 MG CAPSULE PO SCH (08:41)
[2017-11-22] MEDS: BUDESONIDE/FORMOTEROL FUMARATE 160-4.5 MCG/PUFF 6.9 GM INHALER IH SCH ×2 (08:42→21:13)
[2017-11-22 11:20] VITALS: BP 124/81
[2017-11-22 14:30] VITALS: BP 125/83
[2017-11-22] MEDS: TraMADol HCL 50 MG TABLET PO PRN (17:26)
[2017-11-22 19:49] VITALS: BP 111/73
[2017-11-22] MEDS ORDERED: SODIUM CHLORIDE 0.9% 500 ML IV ONE (19:53)
[2017-11-22] MEDS: NYSTATIN 15 GM POWDER BOTTLE TP SCH (20:47)
[2017-11-22] MEDS: ARIPiprazole 10 MG TABLET PO SCH (21:13)
[2017-11-22] MEDS: TraZODone HCL 100 MG TABLET PO SCH (21:14)
[2017-11-22] MEDS: CYCLOBENZAPRINE HCL 10 MG TABLET PO SCH (21:14)
[2017-11-22 23:26] VITALS: BP 101/57
[2017-11-23] MEDS: HYDROCODONE/ACETAMINOPHEN 5-325 MG TABLET PO PRN ×2 (00:03→08:43)
[2017-11-23] MEDS: DiphenhydrAMINE HCL 25 MG CAPSULE PO PRN ×3 (01:41→19:51)
[2017-11-23 04:10] VITALS: BP 127/81
[2017-11-23 07:59] VITALS: BP 122/78
[2017-11-23] MEDS: MEROPENEM 1 GM in SODIUM CHLORIDE 0.9% 100 ML IV SCH ×2 (08:41→19:47)
[2017-11-23] MEDS: NYSTATIN 15 GM POWDER BOTTLE TP SCH ×2 (08:41→19:53)
[2017-11-23] MEDS: BUDESONIDE/FORMOTEROL FUMARATE 160-4.5 MCG/PUFF 6.9 GM INHALER IH SCH ×2 (08:42→19:47)
[2017-11-23] MEDS: FERROUS SULFATE 325 MG EC TABLET PO SCH ×2 (08:42→16:45)
[2017-11-23] MEDS: CALCIUM OYSTER SHELL 500 MG TABLET PO SCH ×4 (08:42→19:49)
[2017-11-23] MEDS: DOCUSATE SODIUM 250 MG CAPSULE PO SCH (08:42)
[2017-11-23] MEDS: FLUCONAZOLE 100 MG TABLET PO SCH (08:42)
[2017-11-23] MEDS: OMEPRAZOLE 20 MG CAPSULE PO SCH (08:42)
[2017-11-23] MEDS: FLUoxetine HCL 20 MG CAPSULE PO SCH (08:43)
[2017-11-23] MEDS: CYCLOBENZAPRINE HCL 10 MG TABLET PO SCH ×2 (08:43→19:47)
[2017-11-23] MEDS: LISINOPRIL 20 MG TABLET PO SCH (08:43)
[2017-11-23] MEDS ORDERED: DOXYCYCLINE 50 MG PO SCH (09:00)
[2017-11-23] MEDS: WATER IV SCH (09:49)
[2017-11-23] MEDS: DOXYCYCLINE IV SCH (09:49)
[2017-11-23] MEDS: DEXTROSE 5% IV SCH (09:49)
[2017-11-23 11:51] VITALS: BP 99/76
[2017-11-23] MEDS: TraMADol HCL 50 MG TABLET PO PRN (14:45)
[2017-11-23 15:59] VITALS: BP 100/71
[2017-11-23] MEDS: ARIPiprazole 10 MG TABLET PO SCH (19:47)
[2017-11-23] MEDS: TraZODone HCL 100 MG TABLET PO SCH (19:47)
[2017-11-23 20:39] VITALS: BP 99/58
[2017-11-24 00:50] VITALS: BP 104/67
[2017-11-24] MEDS: HYDROCODONE/ACETAMINOPHEN 5-325 MG TABLET PO PRN ×3 (00:51→17:23)
[2017-11-24 05:18] VITALS: BP 128/90
[2017-11-24 07:43] VITALS: BP 115/76
[2017-11-24] MEDS: LISINOPRIL 20 MG TABLET PO SCH (08:21)
[2017-11-24] MEDS: DOCUSATE SODIUM 250 MG CAPSULE PO SCH (08:22)
[2017-11-24] MEDS: FLUoxetine HCL 20 MG CAPSULE PO SCH (08:22)
[2017-11-24] MEDS: FERROUS SULFATE 325 MG EC TABLET PO SCH ×2 (08:23→17:20)
[2017-11-24] MEDS: CYCLOBENZAPRINE HCL 10 MG TABLET PO SCH ×2 (08:23→20:09)
[2017-11-24] MEDS: CALCIUM OYSTER SHELL 500 MG TABLET PO SCH ×4 (08:23→20:09)
[2017-11-24] MEDS: FLUCONAZOLE 100 MG TABLET PO SCH (08:23)
[2017-11-24] MEDS: OMEPRAZOLE 20 MG CAPSULE PO SCH (08:24)
[2017-11-24] MEDS: BUDESONIDE/FORMOTEROL FUMARATE 160-4.5 MCG/PUFF 6.9 GM INHALER IH SCH ×2 (08:25→20:09)
[2017-11-24] MEDS: MEROPENEM 1 GM in SODIUM CHLORIDE 0.9% 100 ML IV SCH ×2 (08:26→20:08)
[2017-11-24] MEDS: NYSTATIN 15 GM POWDER BOTTLE TP SCH ×2 (08:26→20:10)
[2017-11-24] MEDS: WATER IV SCH (09:24)
[2017-11-24] MEDS: DEXTROSE 5% IV SCH (09:24)
[2017-11-24] MEDS: DOXYCYCLINE IV SCH (09:24)
[2017-11-24 11:53] VITALS: BP 99/85
[2017-11-24 16:03] VITALS: BP 119/74
[2017-11-24] MEDS: DiphenhydrAMINE HCL 25 MG CAPSULE PO PRN (17:23)
[2017-11-24] MEDS: ARIPiprazole 10 MG TABLET PO SCH (20:09)
[2017-11-24] MEDS: TraZODone HCL 100 MG TABLET PO SCH (20:09)
[2017-11-24] MEDS: TraMADol HCL 50 MG TABLET PO PRN (20:10)
[2017-11-24 20:30] VITALS: BP 106/67
[2017-11-25] MEDS: DiphenhydrAMINE HCL 25 MG CAPSULE PO PRN (01:22)
[2017-11-25] MEDS: HYDROCODONE/ACETAMINOPHEN 5-325 MG TABLET PO PRN ×3 (01:23→15:46)
[2017-11-25 02:00] VITALS: BP 94/61
[2017-11-25] MEDS: TraMADol HCL 50 MG TABLET PO PRN ×2 (03:36→18:53)
[2017-11-25 03:44] VITALS: BP 118/55
[2017-11-25 07:22] VITALS: BP 107/59
[2017-11-25] MEDS: CALCIUM OYSTER SHELL 500 MG TABLET PO SCH ×4 (08:06→20:14)
[2017-11-25] MEDS: FERROUS SULFATE 325 MG EC TABLET PO SCH ×2 (08:06→18:52)
[2017-11-25] MEDS: OMEPRAZOLE 20 MG CAPSULE PO SCH (08:06)
[2017-11-25] MEDS: MEROPENEM 1 GM in SODIUM CHLORIDE 0.9% 100 ML IV SCH ×2 (08:06→20:10)
[2017-11-25] MEDS: DOCUSATE SODIUM 250 MG CAPSULE PO SCH (08:06)
[2017-11-25] MEDS: LISINOPRIL 20 MG TABLET PO SCH (08:06)
[2017-11-25] MEDS: CYCLOBENZAPRINE HCL 10 MG TABLET PO SCH ×2 (08:07→20:14)
[2017-11-25] MEDS: FLUCONAZOLE 100 MG TABLET PO SCH (08:07)
[2017-11-25] MEDS: FLUoxetine HCL 20 MG CAPSULE PO SCH (08:07)
[2017-11-25] MEDS: NYSTATIN 15 GM POWDER BOTTLE TP SCH ×2 (08:08→20:15)
[2017-11-25] MEDS: BUDESONIDE/FORMOTEROL FUMARATE 160-4.5 MCG/PUFF 6.9 GM INHALER IH SCH ×2 (08:08→20:14)
[2017-11-25 11:23] VITALS: BP 114/61
[2017-11-25] MEDS: WATER IV SCH (13:16)
[2017-11-25] MEDS: DOXYCYCLINE IV SCH (13:16)
[2017-11-25] MEDS: DEXTROSE 5% IV SCH (13:16)
[2017-11-25 16:06] VITALS: BP 91/58
[2017-11-25 19:00] VITALS: BP 91/45
[2017-11-25] MEDS: ARIPiprazole 10 MG TABLET PO SCH (20:14)
[2017-11-25] MEDS: TraZODone HCL 100 MG TABLET PO SCH (20:14)
[2017-11-26] VITALS (7 sets, daily range): BP systolic 94–120; BP diastolic 55–75
[2017-11-26] MEDS: HYDROCODONE/ACETAMINOPHEN 5-325 MG TABLET PO PRN ×3 (00:30→20:28)
[2017-11-26] MEDS: OMEPRAZOLE 20 MG CAPSULE PO SCH (08:43)
[2017-11-26] MEDS: MEROPENEM 1 GM in SODIUM CHLORIDE 0.9% 100 ML IV SCH ×2 (08:43→20:31)
[2017-11-26] MEDS: BUDESONIDE/FORMOTEROL FUMARATE 160-4.5 MCG/PUFF 6.9 GM INHALER IH SCH ×2 (08:43→20:29)
[2017-11-26] MEDS: CYCLOBENZAPRINE HCL 10 MG TABLET PO SCH ×2 (08:44→20:29)
[2017-11-26] MEDS: FERROUS SULFATE 325 MG EC TABLET PO SCH ×2 (08:44→18:06)
[2017-11-26] MEDS: FLUoxetine HCL 20 MG CAPSULE PO SCH (08:44)
[2017-11-26] MEDS: DOCUSATE SODIUM 250 MG CAPSULE PO SCH (08:44)
[2017-11-26] MEDS: CALCIUM OYSTER SHELL 500 MG TABLET PO SCH ×4 (08:45→20:28)
[2017-11-26] MEDS: LISINOPRIL 20 MG TABLET PO SCH (08:45)
[2017-11-26] MEDS: NYSTATIN 15 GM POWDER BOTTLE TP SCH ×2 (08:45→20:30)
[2017-11-26] MEDS: FLUCONAZOLE 100 MG TABLET PO SCH (08:45)
[2017-11-26] MEDS: WATER IV SCH (10:08)
[2017-11-26] MEDS: DEXTROSE 5% IV SCH (10:08)
[2017-11-26] MEDS: DOXYCYCLINE IV SCH (10:08)
[2017-11-26] MEDS ORDERED: LACTULOSE 20 GM/30 ML SOLUTION UDCUP PO ONE (15:45)
[2017-11-26] MEDS: TraMADol HCL 50 MG TABLET PO PRN (18:10)
[2017-11-26] MEDS: DiphenhydrAMINE HCL 25 MG CAPSULE PO PRN (20:28)
[2017-11-26] MEDS: ARIPiprazole 10 MG TABLET PO SCH (20:29)
[2017-11-26] MEDS: TraZODone HCL 100 MG TABLET PO SCH (20:29)
[2017-11-27 05:00] VITALS: BP 110/67
[2017-11-27] MEDS: FLUoxetine HCL 20 MG CAPSULE PO SCH (08:12)
[2017-11-27] MEDS: MEROPENEM 1 GM in SODIUM CHLORIDE 0.9% 100 ML IV SCH ×2 (08:12→16:42)
[2017-11-27] MEDS: CYCLOBENZAPRINE HCL 10 MG TABLET PO SCH (08:13)
[2017-11-27] MEDS: FLUCONAZOLE 100 MG TABLET PO SCH (08:13)
[2017-11-27] MEDS: LISINOPRIL 20 MG TABLET PO SCH (08:13)
[2017-11-27] MEDS: OMEPRAZOLE 20 MG CAPSULE PO SCH (08:14)
[2017-11-27] MEDS: CALCIUM OYSTER SHELL 500 MG TABLET PO SCH ×3 (08:14→16:41)
[2017-11-27] MEDS: BUDESONIDE/FORMOTEROL FUMARATE 160-4.5 MCG/PUFF 6.9 GM INHALER IH SCH (08:15)
[2017-11-27] MEDS: FERROUS SULFATE 325 MG EC TABLET PO SCH (08:16)
[2017-11-27 08:33] VITALS: BP 97/58
[2017-11-27] MEDS: DOXYCYCLINE IV SCH (09:18)
[2017-11-27] MEDS: WATER IV SCH (09:18)
[2017-11-27] MEDS: DEXTROSE 5% IV SCH (09:18)
[2017-11-27] MEDS: DOCUSATE SODIUM 250 MG CAPSULE PO SCH (09:21)
[2017-11-27 09:26] VITALS: BP 114/80
[2017-11-27] MEDS: HYDROCODONE/ACETAMINOPHEN 5-325 MG TABLET PO PRN ×2 (09:26→15:35)
[2017-11-27 12:07] VITALS: BP 123/79
[2017-11-27] MEDS: DiphenhydrAMINE HCL 25 MG CAPSULE PO PRN (12:19)
[2017-11-27] MEDS: NYSTATIN 15 GM POWDER BOTTLE TP SCH (12:20)
[2017-11-27] MEDS ORDERED: HYDROCODONE/ACETAMINOPHEN 5-325 MG TABLET PO PRN (14:15)
[2017-11-27 15:27] VITALS: BP 122/78
[2017-11-27] MEDS ORDERED: MEROPENEM 1 GM in SODIUM CHLORIDE 0.9% 100 ML IV SCH (16:30)
[2017-11-27] MEDS ORDERED: MERO1VIA IV (16:52)
[2017-11-27] MEDS ORDERED: NYST30OI6 TP (16:53)
[2017-11-27] MEDS ORDERED: DOXY50 PO (17:54)
[2017-11-27] MEDS ORDERED: NYSTATIN 30 GM OINTMENT TP SCH (21:00)
== END 2017-11-27 18:38 | disposition home health service (06) | DRG 871 ==
LOC: EMS 17:45 → 4E 21:52 → 6N 11-22 18:18
PROVIDERS: ADMIT Family Medicine; ATTEND Family Medicine
DX: A41.9 Sepsis, unspecified organism (principal); G93.41 Metabolic encephalopathy; N39.0 Urinary tract infection, site not specified; F11.20 Opioid dependence, uncomplicated; F25.0 Schizoaffective disorder, bipolar type; B96.20 Unspecified Escherichia coli [E. coli] as the cause of diseases classified elsewhere; E11.9 Type 2 diabetes mellitus without complications; B37.2 Candidiasis of skin and nail; D50.9 Iron deficiency anemia, unspecified; E78.5 Hyperlipidemia, unspecified; E86.0 Dehydration; F17.200 Nicotine dependence, unspecified, uncomplicated; F03.90 Unspecified dementia, unspecified severity, without behavioral disturbance, psychotic disturbance, mood disturbance, and anxiety; F41.9 Anxiety disorder, unspecified; G89.4 Chronic pain syndrome; I10 Essential (primary) hypertension; L22 Diaper dermatitis; M16.12 Unilateral primary osteoarthritis, left hip; M81.0 Age-related osteoporosis without current pathological fracture; F60.3 Borderline personality disorder; R62.7 Adult failure to thrive; Z96.641 Presence of right artificial hip joint; Z16.12 Extended spectrum beta lactamase (ESBL) resistance; Z90.49 Acquired absence of other specified parts of digestive tract; Z91.5 Personal history of self-harm; Z88.0 Allergy status to penicillin; Z88.2 Allergy status to sulfonamides; Z88.8 Allergy status to other drugs, medicaments and biological substances
CPT/HCPCS: 51702; 70450; 73521; 82962; 83735; 87086; 93005; 96365; 96372; 97112; 97162; 97166; 97530; 97535; 99285; G0480; G0481; J0696; J1885; J2185; J3490; J7040; J7050; J7060

== ENCOUNTER 2017-12-18 07:04 | Emergency (ER) | payer MEDICARE, MEDICAID ==
[~2017-12-18] VITALS: Ht 175.3 cm; Wt 79.0 kg
[~2017-12-18 07:04] MED LIST changes: +MERO1VIA IV; +NYST30OI6 TP
[2017-12-18 07:42] LABS: GLUCOSE,POINT OF CARE 76 MG/DL (70-110)
[2017-12-18] MEDS ORDERED: NITROGLYCERIN 2% (1 GM=INCH) PACKET TP ONE (07:45)
[2017-12-18] MEDS ORDERED: ASPIRIN 81 MG CHEWABLE TABLET PO ONE (07:45)
[2017-12-18 08:22] LABS: BASOPHILS % (AUTO) 0.6 % (0.0-2.0); EOSINOPHILS % (AUTO) 1.6 % (1.0-6.0); HEMATOCRIT 42.2 % (36-46); LYMPHOCYTES # (AUTO) 1.7 K/uL (1.0-4.8); LYMPHOCYTES % (AUTO) 19.3 % (22.0-44.0); MEAN CORPUSCULAR HEMOGLOBIN 25.9 pg (26.0-34.0); MEAN CORPUSCULAR HGB CONC 33.2 G/dL (31.0-37.0); MEAN CORPUSCULAR VOLUME 78 fL (80-100); MONOCYTES # (AUTO) 0.7 K/uL (0.1-1.0); MONOCYTES % (AUTO) 7.7 % (2.0-9.0); NEUTROPHILS # (AUTO) 6.2 K/uL (1.8-7.7); NEUTROPHILS % (AUTO) 70.8 % (40.0-70.0); PLATELET COUNT (AUTO) 243 K/uL (150-450); RED BLOOD CELL COUNT(AUTO) 5.41 MIL/uL (4.00-5.20)
[2017-12-18 08:31] LABS: PROTHROMBIN TIME 10.2 SEC (9.4-11.6)
[2017-12-18 08:35] LABS: APPEARANCE,URINE CLOUDY (CLEAR); BILIRUBIN,URINE NEGATIVE (NEGATIVE); GLUCOSE, URINE (UA) NEGATIVE (NEGATIVE); KETONES,URINE NEGATIVE (NEGATIVE); LEUKOCYTE ESTERASE ,URINE LARGE (NEGATIVE); NITRATE,URINE POSITIVE (NEGATIVE); OCCULT BLOOD,URINE MODERATE (NEGATIVE); PH,URINE 6.5 (5.0-8.0); PROTEIN,URINE POS 1+ (NEGATIVE); UROBILINOGEN,URINE 0.2 mg/dL (<=1.0)
[2017-12-18 08:38] LABS: BACTERIA,URINE Moderate /HPF (None Seen); WBC,URINE 51-100 /HPF (0-5)
[2017-12-18 08:42] LABS: CALCIUM, TOTAL 9.5 mg/dL (8.8-10.5); CREATININE 1.02 mg/dL (0.60-1.30); POTASSIUM 4.4 mmol/L (3.5-5.1)
[2017-12-18] MEDS ORDERED: HYDROCODONE/ACETAMINOPHEN 5-325 MG TABLET PO ONE ×2 (08:45→12:15)
[2017-12-18 08:46] LABS: ALBUMIN 3.4 g/dL (3.4-5.0); BILIRUBIN,TOTAL 0.4 mg/dL (0.1-1.0); TOTAL PROTEIN, SERUM 7.9 g/dL (6.4-8.2)
[2017-12-18] MEDS ORDERED: KETOROLAC TROMETHAMINE 30 MG/ML VIAL IVP ONE (09:15)
[2017-12-18] MEDS ORDERED: CIPROFLOXACIN HCL 250 MG TABLET PO ONE (09:45)
[2017-12-18 13:03] VITALS: BP 99/71
== END 2017-12-18 13:57 | disposition home or self-care (01) ==
LOC: EMS 07:06
DX: R07.2 Precordial pain (principal); E11.9 Type 2 diabetes mellitus without complications; I10 Essential (primary) hypertension; G89.29 Other chronic pain; F17.210 Nicotine dependence, cigarettes, uncomplicated; Z88.0 Allergy status to penicillin; Z88.2 Allergy status to sulfonamides; Z88.8 Allergy status to other drugs, medicaments and biological substances
CPT/HCPCS: 36415; 71045; 80053; 81001; 82962; 83690; 84484; 85025; 85610; 87077; 87086; 87186; 93005; 96374; 99285; J1885

== ENCOUNTER 2018-03-01 06:06 | Emergency (ER) | payer MEDICARE, MEDICAID ==
[~2018-03-01] VITALS: Ht 165.1 cm; Wt 72.7 kg
[~2018-03-01 06:06] MED LIST changes: -DOCU250C91 PO; -DOXY50 PO; -MERO1VIA IV; -METF500T4 PO; +METF500T6 PO; -OS500 PO; -TRAM50TA4 PO; -ZOLP5 PO
[2018-03-01 07:15] VITALS: BP 129/79
[2018-03-01 07:27] LABS: GLUCOSE,POINT OF CARE 84 MG/DL (70-110)
[2018-03-01] MEDS ORDERED: ARIPiprazole 15 MG TABLET PO ONE (07:30)
[2018-03-01] MEDS ORDERED: FLUoxetine HCL 20 MG CAPSULE PO ONE (07:30)
[2018-03-01 08:24] LABS: BASOPHILS % (AUTO) 0.5 % (0.0-2.0); EOSINOPHILS % (AUTO) 0.4 % (1.0-6.0); HEMATOCRIT 39.8 % (36-46); HEMOGLOBIN 13.7 g/dL (12.0-16.0); LYMPHOCYTES # (AUTO) 1.1 K/uL (1.0-4.8); LYMPHOCYTES % (AUTO) 16.3 % (22.0-44.0); MEAN CORPUSCULAR HEMOGLOBIN 28.6 pg (26.0-34.0); MEAN CORPUSCULAR HGB CONC 34.5 G/dL (31.0-37.0); MEAN CORPUSCULAR VOLUME 83 fL (80-100); MONOCYTES # (AUTO) 0.3 K/uL (0.1-1.0); MONOCYTES % (AUTO) 4.3 % (2.0-9.0); NEUTROPHILS # (AUTO) 5.4 K/uL (1.8-7.7); NEUTROPHILS % (AUTO) 78.5 % (40.0-70.0); PLATELET COUNT (AUTO) 240 K/uL (150-450); RED BLOOD CELL COUNT(AUTO) 4.81 MIL/uL (4.00-5.20); RED CELL DISTRIBUTION WIDTH 16.2 % (11.5-14.5)
[2018-03-01 08:35] LABS: ANION GAP 3 mmol/L (8-16); CALCIUM, TOTAL 9.2 mg/dL (8.8-10.5); CARBON DIOXIDE 30 mmol/L (22-29); CHLORIDE 100 mmol/L (98-107); CREATININE 0.85 mg/dL (0.60-1.30); GLOMERULAR FILTR. RATE CALC > 60 mL/min (>60); GLUCOSE,RANDOM 91 mg/dL (70-110); SODIUM SERUM 133 mmol/L (136-145); UREA NITROGEN, BLOOD 16 mg/dL (7-18)
[2018-03-01 08:39] LABS: ALANINE AMINOTRANSFERASE 74 U/L (12-78); ALBUMIN 3.6 g/dL (3.4-5.0); ALKALINE PHOSPHATASE 234 U/L (46-116); ASPARTATE AMINOTRANSFERASE 59 U/L (15-37); BILIRUBIN,TOTAL 0.5 mg/dL (0.1-1.0); TOTAL PROTEIN, SERUM 8.1 g/dL (6.4-8.2)
== END 2018-03-01 10:26 | disposition home or self-care (01) ==
LOC: EMS 06:07
DX: F41.9 Anxiety disorder, unspecified (principal); F25.9 Schizoaffective disorder, unspecified; R51 Headache; F31.9 Bipolar disorder, unspecified; E11.9 Type 2 diabetes mellitus without complications; I10 Essential (primary) hypertension; F17.210 Nicotine dependence, cigarettes, uncomplicated; G89.29 Other chronic pain; Z88.0 Allergy status to penicillin; Z88.2 Allergy status to sulfonamides; Z88.8 Allergy status to other drugs, medicaments and biological substances
CPT/HCPCS: 36415; 80053; 82962; 85025; 99284; G0480